=== PATIENT | male | born 1955 | race Caucasian/White ===

== ENCOUNTER 2016-12-13 11:13 | Inpatient (IN) | payer MEDICARE, MEDICAID ==
--- NOTE | 2016-12-13 12:06 | RAD ---
THREE VIEWS RIGHT FOOT: Comparison: 12-07-16 History: Right fifth toe gangrene with foul odor. FINDINGS: Three views of the right foot shows moderate diffuse soft tissue swelling. There is absence of the d istal aspect of the small toe. There is bony loss to the proximal aspect of the proximal phalanx. Th is appears to have progressed compared to the prior examination. IMPRESSION: Progression of osteomyelitis of the small toe. POS: [facility]
[2016-12-13 12:53] LABS: #Basophils 0.1 thou/uL (0.0-0.2); #Eosinphils 0.5 thou/uL (0.0-0.7); #Lymphocytes 2.7 thou/uL (1.20-3.40); #Monocytes 0.7 thou/uL (0.11-0.59); #Neutrophils 5.8 thou/uL (1.40-6.50); %Basophils 0.5 % (0.0-1.0); %Eosinophils 4.8 % (0.0-10.0); %Monocytes 7.2 % (0.0-10.0); Hematocrit 38.1 % (42.0-52.0); Mean Platelet Volume 8.2 fL (7.4-10.4); Red Blood Cell (RBC) Count 4.02 mill/uL (4.70-6.10); White Blood Cell (WBC) Count 9.7 thou/uL (4.8-10.8)
[2016-12-13] MEDS ORDERED: ADMIXTURE FEE IVPB SCH (13:15)
[2016-12-13] MEDS ORDERED: SODIUM CHLORIDE IVPB SCH (13:15)
[2016-12-13] MEDS ORDERED: VANCOMYCIN HCL IVPB SCH (13:15)
[2016-12-13 13:17] LABS: ALT (SGPT) Less than 7 U/L (8-55); AST (SGOT) 8 U/L (5-34); Alkaline Phosphatase 136 U/L (40-150); Anion Gap 14 mmol/L (10-20); BUN (Urea Nitrogen) 26 mg/dL (8.4-25.7); Bilirubin, Total 0.3 mg/dL (0.2-1.2); Calc. Creatinine Clearance 0 mL/min (70-130); Calcium 8.9 mg/dL (7.8-10.44); Carbon Dioxide 26 mmol/L (23-31); Chloride 102 mmol/L (98-107); Estimated GFR-MDRD 29; Globulin 3.5 g/dL (2.4-3.5)
[2016-12-13 13:53] LABS: PTT 25.9 SEC (22.9-36.1); Prothrombin Time 13.4 SEC (12.0-14.7)
--- NOTE | 2016-12-13 14:00 | RAD ---
SINGLE VIEW OF THE CHEST: HISTORY: COPD with hypertension and diabetes. COMPARISON: 06/24/2016 FINDINGS: Single view of the chest show normal sized cardiomediastinal silhouette. There is no evidence of con solidation, mass, or pleural effusion. The bones are unremarkable. IMPRESSION: No evidence of acute cardiopulmonary disease. POS: [facility]
[2016-12-13] MEDS ORDERED: Clindamycin/D5W 900 mg/50 ml Premix Bag ONE (14:59)
[2016-12-13] MEDS ORDERED: Ondansetron HCl/PF 4 MG/2 ML Vial IVP PRN (15:44)
[2016-12-13] MEDS ORDERED: Mag-Al 1200 mg/1200 mg/30 ML UDCUP PO PRN (15:44)
[2016-12-13] MEDS ORDERED: Milk Of Magnesia 30 ML UDCUP PO PRN (15:44)
[2016-12-13] MEDS ORDERED: VANCOMYCIN IVPB PRN (15:44)
[2016-12-13] MEDS ORDERED: Eucerin (Mineral Oil/Petrolatum,White) 30 gm Jar TOP PRN (15:44)
[2016-12-13] MEDS ORDERED: Sodium Chloride 0.65% Nasal 44 ML BOT EA NARE PRN (15:44)
[2016-12-13] MEDS ORDERED: Senokot 8.6 MG TAB PO PRN (15:44)
[2016-12-13] MEDS ORDERED: Ondansetron ODT 4 MG TAB PO PRN (15:44)
[2016-12-13] MEDS ORDERED: Zolpidem Tartrate 5 MG TAB PO PRN (15:44)
[2016-12-13] MEDS ORDERED: Loratadine 10 MG TAB PO PRN (15:44)
[2016-12-13] MEDS ORDERED: Diabetic Tussin 200 MG/10 ML UDCUP PO PRN (15:44)
[2016-12-13] MEDS ORDERED: Artificial Tears 18 DROP/0.9 ML EA EYE PRN (15:44)
[2016-12-13] MEDS ORDERED: Chloraseptic Spray 180 ml Bottle PO PRN (15:44)
[2016-12-13] MEDS ORDERED: Loperamide HCl 2 MG CAP PO PRN (15:44)
[2016-12-13] MEDS ORDERED: Acetaminophen 325 MG TAB PO PRN (15:44)
[2016-12-13] MEDS ORDERED: Morphine Sulfate 2 MG/ML SYRINGE SLOW IVP PRN (15:44)
--- NOTE | 2016-12-13 15:44 | HP ---
PRIMARY CARE PHYSICIAN: Nolberto Rollins M.D. REASON FOR ADMISSION: Osteomyelitis of right fifth toe. HISTORY OF PRESENT ILLNESS: A 61-year-old male who has diabetes type 2 on oral diabetic medications and diabetic neuropathy, who came to emergency room for evaluation of black discoloration of the ri ght fifth toe. The patient also noticed erythema and swelling proximally on the right foot. He laird s feel little pain. He was feeling subjectively warm at home, but he is not sure about fever. The patient reports that he is dealing with this type of infection in his right fifth toe for about 3 mo nths, but it is not getting better. He was given a trial of a different antibiotic therapy. Zeferino grande is frustrated; and now, he decided to come to emergency room for surgical treatment. In the emerg ency room, x-ray showed progression of osteomyelitis of the small toe. The patient also has a right foot erythema and swelling. This patient denies any vascular claudication. He denies any nausea, vomiting, diarrhea or constipation. He denies any chest pain, though he reports that his rib cage i s broken and that is why he hurts sometimes on deep pressure on the chest wall. Currently, his symp stephanie is getting worse with walking because of pain in his right foot. He denies any UTI symptoms. He denies any hematochezia or melena. REVIEW OF SYSTEMS: Please see my HPI for pertinent positives and negatives. All other review of sy stems reviewed and negative except as mentioned in the HPI. Constitutional: Weight loss or gain, ability to conduct usual activities. Skin: Rash, itching. Eyes: Double vision, pain. ENT/Mouth: Nose bleeding, neck stiffness, pain, tenderness. Cardiovascular: Palpitations, dyspnea on exertion, orthopnea. Respiratory: Shortness of breath, wheezing, cough, hemoptysis, fever or night sweats. Gastrointestinal: Poor appetite, abdominal pain, heartburn, nausea, vomiting, constipation, or diar sanjiv. Genitourinary: Urgency, frequency, dysuria, nocturia. Musculoskeletal: Pain, swelling. Neurologic/Psychiatric: Anxiety, depression. Allergy/Immunologic: Skin rash, bleeding tendency. PAST MEDICAL HISTORY: Diabetes type 2, COPD, tobacco abuse disorder, chronic kidney disease stage 4 , and diabetic neuropathy. PAST SURGICAL HISTORY: Right hand surgery, hernia repair, venous surgery. PAST PSYCHIATRIC HISTORY: Anxiety, depression, bipolar disorder, and schizophrenia. ALLERGIES: The patient is allergic to PENICILLIN, TOMATOES and INSULIN. FAMILY HISTORY: Breast cancer to his mother, coronary artery disease to his father. SOCIAL HISTORY: Patient is . He says he has only one child. He smokes cigars. He denies any alcohol abuse. He denies any other illicit drug abuse. CODE STATUS: The patient prefers do not resuscitate in case of cardiopulmonary arrest, patient's si ster-in-law, Liana Hernandez, his surrogate decision maker. EMERGENCY ROOM COURSE: Patient has received vancomycin, clindamycin, and IV fluid. CURRENT HOME MEDICATIONS: Metformin 1000 mg twice daily, gabapentin 300 mg 3 times daily, glimepiri de 4 mg p.o. b.i.d., Lipitor 40 mg p.o. at bedtime, ferrous sulfate 325 mg p.o. daily, lisinopril 40 mg p.o. b.i.d. PHYSICAL EXAMINATION: VITAL SIGNS: On arrival, blood pressure 117/69, pulse 89, respiratory rate 18, temperature 97.7, an d saturation 93% on room air, weight 90.7 kilograms. GENERAL: Patient is currently alert, awake, in no obvious acute distress. HEAD: Normocephalic, atraumatic. EYES: Pupils round, reactive to light. Extraocular muscles intact. ENT: Oropharynx within normal limits. Moist mucous membranes. No oral lesions. No pharyngeal josiah thema. No exudates. NECK: Supple. Range of motion is normal. No meningeal signs of irritation. LUNGS: Clear to auscultation without any rhonchi or rales. CARDIAC: S1, S2 regular without any significant murmur. ABDOMEN: Soft, bowel sounds present, nontender, nondistended. No organomegaly. No mass. No supra pubic tenderness. BACK EXAMINATION: Unremarkable. No CVA tenderness. EXTREMITIES: Upper extremity passive movement of all joints are normal. Lower extremity, patient d oes have cellulitis of right foot and fifth toe is black and gangrenous, very feeble pulsation on th e right side. NEUROLOGIC: Nonfocal examination. Patient is moving all 4 limbs. No focal neurological deficit. SKIN: No skin rash other than cellulitis of right foot. PSYCHIATRIC: Normal affect. SIGNIFICANT LABS AND IMAGINGS: Chest x-ray based on my review, no acute cardiopulmonary process. CBC: WBC 9.7, hemoglobin 12.0, platelet 258,000. ESR 53. INR 1.0. BMP: Sodium 137, potassium 5. 3, chloride 102, carbon dioxide 26, anion gap 14, BUN 26, creatinine 2.29, glucose 284, calcium 8.9. LFTs: AST 8, ALT less than 7, alkaline phosphatase 136, albumin 3.5. BNP 27.4, CK 28, CRP 1.25. X-ray foot showing progression of osteomyelitis of the small toe. Right foot show moderate diffuse soft tissue swelling, absence of distal aspect of small toe, bony loss to proximal aspect of proxima l phalanx. Old records reviewed in our hospital system. ASSESSMENT AND PLAN: 1. Right foot cellulitis with diabetic toe infection and osteomyelitis. At this point, the patient will require admission. He will be given broad-spectrum antibiotic therapy with vancomycin and Zos yn. This patient only prefers Dr. Nestor Galeana, music director, to do any kind of intervention and he pr efers seem to be consulted. We will consult Dr. Nestor Galeana, music director, based on patient's request . We will defer further treatment plan to Dr. Nestor Galeana. The patient only makes stress to him. Wound Care team will be consulted. We will control his pain while in hospital with the oral pain me dication. 2. Diabetes type 2, not well controlled. We will continue with diabetes with oral diabetic medicat ion. Patient claims that he is allergic to all kinds of INSULIN and he does not want insulin therap y. We will provide diabetic diet. 3. Hyperkalemia. We will avoid potassium supplementation. We will avoid JASVIR inhibitor. We will r epeat BMP tomorrow. 4. Chronic kidney disease stage 3. We will monitor renal function. We will avoid nephrotoxin agen t. 5. Tobacco abuse disorder. The patient is given counseling to avoid smoking cigars because of his heavy smoking history. We will also do arterial Doppler study on right lower extremity to rule out any peripheral vascular disease given his gangrenous toe. 6. Hypertension. We will continue with amlodipine 10 mg p.o. daily. Because of hyperkalemia and r enal insufficiency, we will avoid JASVIR inhibitors. 7. Bipolar disorder, schizophrenia. The patient is not on any specific medication for this problem . 8. Deep venous thrombosis prophylaxis, heparin 5000 units subcu twice daily. 9. Gastrointestinal prophylaxis. Protonix 40 mg p.o. daily. CODE STATUS: The patient wants to be a DNR and patient's [id number] Liana is a surrogate decisio n maker.
[2016-12-13 15:49] VITALS: BMI 25.0
[2016-12-13] MEDS ORDERED: Gabapentin 100 MG CAP PO SCH (17:00)
[2016-12-13] MEDS: Sodium Chloride 0.9% 1,000 ML IV SCH (17:19)
[2016-12-13] MEDS: Levofloxacin/D5W 250 MG in Premix Bag 1 BAG IVPB SCH (17:44)
--- NOTE | 2016-12-13 18:26 | ULT ---
RIGHT LOWER EXTREMITY ARTERIAL DUPLEX SONOGRAM: Date: 12/13/16 HISTORY: Diabetic foot ulcer. Vascular disease. FINDINGS: Monophasic flow is demonstrated within the common femoral, femoral, and deep femoral, popliteal, pos terior tibial, and dorsalis pedis arteries. No flow is seen within the anterior tibial artery. No ab normally elevated peak systolic velocities are apparent. IMPRESSION: Dampened pulsatility of arterial waveforms in the right lung suggest a more proximal arterial stenos is. Conventional or CT arteriogram could be used for further evaluation if needed. POS: [facility]
[2016-12-13 22:23] LABS: Bilirubin Negative (Negative); Blood, Urine Negative (Negative); Glucose, Urine (Dipstick) Negative (Negative); Ketone, Urine Negative (Negative); Nitrite Negative (Negative); Protein, Urine (Dipstick) 100 mg/dL (Neg-Trace); Urobilinogen 0.2 mg/dL (0.2-1.0)
[2016-12-13 22:24] LABS: Bacteria/HPF None Seen HPF (None Seen); Hyaline Casts/LPF 0-3 HYALINE CAST LPF (0-3 Hyaline); RBC/HPF 0-3 HPF (0-3); Squamous Epithelial None Seen HPF (0-3); WBC/HPF None Seen HPF (0-3)
[2016-12-13] MEDS: Gabapentin 100 MG CAP PO SCH (23:29)
[2016-12-13] MEDS: cloNIDine HCl 0.1 MG TAB PO SCH (23:29)
[2016-12-13] MEDS: Clindamycin/D5W 600 MG in Premix Bag 1 BAG IVPB SCH (23:30)
[2016-12-13] MEDS: Heparin 5,000 UNITS/ML VIAL SC SCH (23:31)
[2016-12-13] MEDS: Atorvastatin Calcium 40 MG TAB PO SCH (23:32)
--- NOTE | 2016-12-14 02:30 | CON ---
DATE OF CONSULTATION: 12/13/2016 SUBJECTIVE FINDINGS: I was called late this afternoon to see the patient known to the office, Jori Martell. He is resting in the bed and is in no acute distress. He has been started on antibiotics a s reviewed. He states he has had a problem with this foot for over 2 months. He was admitted to [facility] late morning or early afternoon due to a foot wound. He was also diagnosed with osteomy elitis as well as renal insufficiency. OBJECTIVE FINDINGS: The patient examined, has palpable pulse weakly, dorsalis pedis 1/4. PT, nonpa lpable. With audible Doppler, he has a strong monophasic posterior tibial pulse and at the dorsalis pedis, he has a slightly weaker monophasic pulses. Capillary filling time to the digits are less t guerra 3 seconds. The foot is warm and has swelling. Examination shows dry and wet gangrene present. The patient has what appears to be the phalanx desiccated and black at the center of the toe where the soft tissues has retracted symmetrically around the remainder of the bone. There is no active d rainage or bleeding. There is pain with attempted touch at the desiccated tissues. ASSESSMENT AND PLAN: 1. The patient and I discussed his current condition. I discussed with him the need for surgical d ebridement, cleaning, and removal of necrotic tissues. We discussed possible closing the wound and more probably having to do wound care and close the wound that will remain open. 2. The patient has been made n.p.o. He will be consented for incision and drainage and amputation of partial right first ray. 3. Surgical intervention is scheduled for 12/14/2016, at noon. 4. At this time, he will continue with antibiotics currently prescribed and deep cultures will be harjinder henry intraoperatively.
[2016-12-14] MEDS: Clindamycin/D5W 600 MG in Premix Bag 1 BAG IVPB SCH ×4 (03:42→20:45)
[2016-12-14 04:46] LABS: #Basophils 0.1 thou/uL (0.0-0.2); #Eosinphils 0.4 thou/uL (0.0-0.7); #Lymphocytes 2.7 thou/uL (1.20-3.40); #Monocytes 0.6 thou/uL (0.11-0.59); #Neutrophils 3.4 thou/uL (1.40-6.50); %Basophils 0.8 % (0.0-1.0); %Eosinophils 6.1 % (0.0-10.0); %Lymphocytes 37.6 % (21.0-51.0); %Monocytes 8.2 % (0.0-10.0); Hematocrit 34.6 % (42.0-52.0); Mean Platelet Volume 8.6 fL (7.4-10.4); Red Blood Cell (RBC) Count 3.61 mill/uL (4.70-6.10); White Blood Cell (WBC) Count 7.1 thou/uL (4.8-10.8)
[2016-12-14 05:08] LABS: ALT (SGPT) Less than 7 U/L (8-55); AST (SGOT) 9 U/L (5-34); Alkaline Phosphatase 124 U/L (40-150); Anion Gap 13 mmol/L (10-20); BUN (Urea Nitrogen) 22 mg/dL (8.4-25.7); Bilirubin, Total 0.2 mg/dL (0.2-1.2); Calc. Creatinine Clearance 59 mL/min (70-130); Calcium 8.8 mg/dL (7.8-10.44); Carbon Dioxide 25 mmol/L (23-31); Chloride 106 mmol/L (98-107); Estimated GFR-MDRD 41; Globulin 3.1 g/dL (2.4-3.5); Protein, Total 6.3 g/dL (5.8-8.1)
[2016-12-14] MEDS: Sodium Chloride 0.9% 1,000 ML IV SCH ×2 (06:29→09:59)
[2016-12-14] MEDS ORDERED: Glimepiride 4 MG TAB PO SCH (08:00)
[2016-12-14] MEDS: Gabapentin 100 MG CAP PO SCH ×3 (09:17→23:16)
[2016-12-14] MEDS: Saccharomyces boulardii 250 MG CAP PO SCH (09:18)
[2016-12-14] MEDS: Heparin 5,000 UNITS/ML VIAL SC SCH ×2 (09:22→23:16)
[2016-12-14] MEDS ORDERED: Bupivacaine PF 0.5% 30 ML VIAL ONE (10:54)
[2016-12-14] MEDS ORDERED: Albuterol Sulfate 1.25 MG/3 ML NEB ONE (11:25)
[2016-12-14] MEDS ORDERED: Midazolam HCl 2 mg/2 ml Vial ONE (11:33)
[2016-12-14] MEDS ORDERED: Fentanyl 100 MCG/2 ML VIAL ONE (11:33)
[2016-12-14] MEDS ORDERED: Neomycin-Polymyxin 1 ML AMP ONE (11:48)
[2016-12-14] MEDS ORDERED: Lidocaine 1% PF 5 ML VIAL ONE (12:06)
[2016-12-14] MEDS ORDERED: Ondansetron HCl/PF 4 MG/2 ML Vial ONE (12:06)
[2016-12-14] MEDS ORDERED: Propofol 200 MG/20 ML VIAL ONE (12:06)
[2016-12-14] MEDS ORDERED: Promethazine HCl 25 MG/ML VIAL IM PRN (13:04)
[2016-12-14] MEDS ORDERED: Ondansetron HCl/PF 4 MG/2 ML Vial IVP PRN (13:04)
[2016-12-14] MEDS ORDERED: Promethazine HCl 25 MG/ML VIAL SLOW IVP PRN (13:04)
[2016-12-14] MEDS ORDERED: Vancomycin HCl 1.25 GM in Sodium Chloride 0.9% 250 ML 250 ML IVPB SCH (14:00)
--- NOTE | 2016-12-14 14:58 | RAD ---
RIGHT FOOT THREE VIEWS: History: Patient is status post I\T\D, status post fifth toe amputation. Comparison: 12-13-16 FINDINGS: Patient has had an amputation to include the distal aspect of the fifth metatarsal and little toe. T here is some slight lucency near the amputation site. This could just be on the basis of amputation. It is difficult to exclude the possibility that this is early osteomyelitis. The bones are slightly demineralized. No additional findings. IMPRESSION: Post-operative changes of the foot with amputation of the little toe and the distal portion of the f ifth metatarsal. I am not certain if the slight lucency at the amputation site is related to the wesley pilo or early osteomyelitis on this basis of this exam. POS: [facility]
--- NOTE | 2016-12-14 15:16 | PDOC.PN ---
- Subjective Encounter Start Date: 12/14/16 Encounter Start Time: 09:00 Subjective: no pain or sob -: is sleeping - Objective Resuscitation Status: Resuscitation Status DNR:Do Not Resuscitate MAR Reviewed: Yes Vital Signs & Weight: Vital Signs (12 hours) Temp Pulse Resp BP BP BP Pulse Ox 12/14/16 09:17 62 157/76 H 12/14/16 08:12 97.7 F 62 16 157/76 H 94 L 12/14/16 08:00 97.7 F 62 16 94 L 12/14/16 04:45 98.0 F 60 18 125/65 94 L Result Diagrams: 12/14/16 04:09 12/14/16 04:09 Additional Labs: Accuchecks 12/14/16 12/13/16 11:45 17:24 POC Glucose 138 H 189 H Phys Exam - Physical Examination HEENT: PERRLA, moist MMs Neck: no JVD, supple Respiratory: no wheezing, no rales Cardiovascular: RRR, no significant murmur Gastrointestinal: soft, non-tender, positive bowel sounds right foot ulcer with gangrene Neurological: non-focal, moves all 4 limbs Dx/Plan (1) COPD (chronic obstructive pulmonary disease) Status: Chronic Qualifiers: COPD type: chronic bronchitis (2) MARY ELLEN (acute kidney injury) Code(s): N17.9 - ACUTE KIDNEY FAILURE, UNSPECIFIED Status: Acute Comment: resolving (3) DM type 2 (diabetes mellitus, type 2) Status: Chronic Qualifiers: Diabetes mellitus complication status: with circulatory complication Diabetes mellitus complication detail: with peripheral angiopathy with gangrene Diabetes mellitus dedicated intermodal truck driver insulin use: without chcf use Qualified Code(s): E11.52 - Type 2 diabetes mellitus with diabetic peripheral angiopathy with gangrene (4) Hypertension Code(s): I10 - ESSENTIAL (PRIMARY) HYPERTENSION Status: Chronic Qualifiers: Hypertension type: essential hypertension (5) Peripheral vascular disease Code(s): I73.9 - PERIPHERAL VASCULAR DISEASE, UNSPECIFIED Status: Chronic Comment: right LE (6) Schizophrenia Code(s): F20.9 - SCHIZOPHRENIA, UNSPECIFIED Status: Chronic Qualifiers: Schizophrenia type: unspecified Qualified Code(s): F20.9 - Schizophrenia, unspecified (7) Tobacco abuse Code(s): Z72.0 - TOBACCO USE Status: Chronic - Plan has pvd in right LE -: for amputation of right 5th toe today -: will consult for possible intervention if pt allows him to do -: gentle iv hydration, renal function trending towards baseline -: on clinda and levaquin for now * . Review of Systems - Medications/Allergies Allergies/Adverse Reactions: Allergies Allergy/AdvReac Type Severity Reaction Status Date / Time tomato Allergy Intermediate Rash Verified 02/22/14 05:16 Penicillins Allergy Verified 02/22/14 05:16 Insulins AdvReac Intermediate Nausea Verified 02/22/14 05:16 Medications: Current Medications Acetaminophen (Tylenol) 650 mg PO Q4H PRN PRN Reason: Headache/Fever or Pain Hydrocodone Bitart/Acetaminophen ([place] 10/325) 1 tab PO Q4H PRN PRN Reason: Moderate Pain (4-6) Al Hydroxide/Mg Hydroxide (Maalox) 30 ml PO Q6H PRN PRN Reason: Heartburn or Indigestion Amlodipine Besylate (Norvasc) 10 mg PO DAILY [facility] Last Admin: 12/14/16 09:17 Dose: 10 mg Artificial Tears (Tears Naturale) 0 drop EA EYE PRN PRN PRN Reason: Dry Eyes Aspirin (Aspirin Chewable) 81 mg PO DAILY [facility] Last Admin: 12/14/16 09:21 Dose: Not Given Atorvastatin Calcium (Lipitor) 40 mg PO HS [facility] Last Admin: 12/13/16 23:32 Dose: Not Given Clonidine HCl (Catapres) 0.1 mg PO HS [facility] Last Admin: 12/13/16 23:29 Dose: 0.1 mg Fentanyl (Pacu-Sublimaze) 50 mcg SLOW IVP Q10MIN PRN PRN Reason: Moderate to Severe Pain (6-10) Stop: 12/14/16 16:04 Gabapentin (Neurontin) 100 mg PO TID [facility] Last Admin: 12/14/16 09:17 Dose: 100 mg Glimepiride (Amaryl) 4 mg PO QAM-WM [facility] Last Admin: 12/14/16 09:21 Dose: Not Given Guaifenesin (Robitussin Sf) 200 mg PO Q4H PRN PRN Reason: Cough Heparin Sodium (Porcine) (Heparin) 5,000 units SC BID [facility] Last Admin: 12/14/16 09:22 Dose: Not Given Hydralazine HCl (Apresoline) 10 mg SLOW IVP Q4H PRN PRN Reason: Systolic BP > 180 Clindamycin Phosphate/Dextrose (600 mg/ Device) 50 mls @ 100 mls/hr IVPB Q6H [facility] Last Admin: 12/14/16 09:58 Dose: 50 mls Levofloxacin 250 mg/ Device 50 mls @ 100 mls/hr IVPB Q24HR [facility] Last Admin: 12/13/16 17:44 Dose: 50 mls Sodium Chloride (Normal Saline 0.9%) 1,000 mls @ 70 mls/hr IV .[id number] [facility] Last Admin: 12/14/16 09:59 Dose: 1,000 mls Vancomycin HCl 1.25 gm/ Sodium (Chloride) 250 mls @ 166.667 mls/hr IVPB 1400 [facility] Last Admin: 12/14/16 14:39 Dose: 250 mls Loperamide HCl (Imodium) 2 mg PO PRN PRN PRN Reason: Diarrhea/Loose Stools Loratadine (Claritin) 10 mg PO DAILYPRN PRN PRN Reason: Sinus Symptoms Magnesium Hydroxide (Milk Of Magnesium) 30 ml PO DAILYPRN PRN PRN Reason: Constipation Mineral Oil/White Petrolatum (Eucerin Cream) 0 gm TOP BIDPRN PRN PRN Reason: Dry Skin Miscellaneous Medication (Pharmacy To Dose) 1 each IVPB PRN PRN PRN Reason: Pharmacy to dose Morphine Sulfate (Morphine Sulfate) 2 mg SLOW IVP Q4H PRN PRN Reason: Severe Pain (7-10) Ondansetron HCl (Zofran Odt) 4 mg PO Q6H PRN PRN Reason: Nausea/Vomiting Ondansetron HCl (Zofran) 4 mg IVP Q6H PRN PRN Reason: Nausea/Vomiting Ondansetron HCl (Pacu-Zofran) 4 mg IVP ONE PRN PRN Reason: Nausea/Vomiting Stop: 12/14/16 16:04 Pantoprazole Sodium (Protonix) 40 mg PO DAILY [facility] Last Admin: 12/14/16 09:17 Dose: 40 mg Phenol (Chloraseptic [place] 180 Ml Bot) 0 ml PO PRN PRN PRN Reason: Sore Throat Promethazine HCl (Pacu-Phenergan) 6.25 mg SLOW IVP ONE PRN PRN Reason: Nausea/Vomiting Stop: 12/14/16 16:04 Promethazine HCl (Pacu-Phenergan) 6.25 mg IM ONE PRN PRN Reason: Nausea/Vomiting Stop: 12/14/16 16:04 Saccharomyces Boulardii (Florastor) 250 mg PO DAILY [facility] Last Admin: 12/14/16 09:18 Dose: 250 mg Senna (Senokot) 2 tab PO HSPRN PRN PRN Reason: Constipation Sodium Chloride ([place] Nasal [place] 0.65%) 0 ml EA NARE QIDPRN PRN PRN Reason: Nasal Congestion Zolpidem Tartrate (Ambien) 5 mg PO HSPRN PRN PRN Reason: Insomnia
[2016-12-14] MEDS: Levofloxacin/D5W 250 MG in Premix Bag 1 BAG IVPB SCH (18:04)
[2016-12-14] MEDS: HYDROcodone/Acetaminophen 10/325 mg Tablet PO PRN (20:43)
[2016-12-14] MEDS: Atorvastatin Calcium 40 MG TAB PO SCH (21:51)
--- NOTE | 2016-12-14 23:06 | OP ---
PREOPERATIVE DIAGNOSIS: Chronic wound with osteomyelitis, right fifth digit. POSTOPERATIVE DIAGNOSIS: Chronic wound with osteomyelitis, right fifth digit. PROCEDURE: Partial right fifth ray amputation. ANESTHESIA: General anesthesia with local. HEMOSTASIS: None used. ESTIMATED BLOOD LOSS: Less than 30 mL SURGEON: Nestor Galeana D.P.M. AIRBRUSH ARTIST TECHNICAL: No assistants. PROCEDURE IN DETAIL: The patient was taken to the operating room, placed on the operating room tabl e, placed in the supine position and general anesthesia was administered. At this time, a mini Serrano block was performed using 0.5% plain Marcaine, totaling 9 mL. At this time, it was noted that magg ots presented deep in the wound on the plantar aspect of the ____ flexor tendon that was present. N ext, the right lower extremity was scrubbed and draped in the usual surgical manner. Attention was first directed to the desiccated tissues. This was clamped and retracted distally and healthy tendi nous tissue was noted and transected. At this time, a curet was performed to remove all the soft ti ssue and multiple maggots that were present. Next, the wound was then reprepped with Hibiclens. A dorsal lateral linear incision was made over the 5th metatarsal extending to the base of the wound dorsally. At this time, using a Biddle, soft tissues were reflected from the metatarsal and incisio n in metatarsal was performed with a power saw. The incision to the bone was a bias, more plantar r emoved than dorsal, more lateral removed than medial. Next, the distal aspect of the skin, which blackburn d some necrosis, was ellipsed with the remaining proximal phalanx and distal fifth metatarsal. Next , using a rongeur and sharp dissection, all nonviable appearing tissues was removed. The flexor and extensor tendons were identified, clamped, and retracted distally and sharply, transected proximall y. With a rongeur, the distal aspect of the fifth metatarsal was again further remodeled. The bone that had appearance of osteomyelitis was passed off the back table and sent off for culture and sensitivity, and Gram stain. Copious lavage of the surgical site was performed. The skin borders were loosely approximated with nylon suture and the distal aspect of the wound was packed with Xeroform. Dressings were applied co nsisting of 4 x 4 gauze, Ovidio, and an Jalil bandage. The patient tolerated the anesthesia and procedure well. Good blood flow to the tissues noted after resection of the tissues. The patient left the operating room with vital signs stable. The patient will be readmitted to the hospital for IV antibiotics and await culture and sensitivity reports. The patient will be seen by Infectious Disease, physical therapy and a wound VAC will be p laced tomorrow afternoon. Social Service will see the patient for decision on home health or SNF po stdischarge placement.
[2016-12-14] MEDS: cloNIDine HCl 0.1 MG TAB PO SCH (23:16)
--- NOTE | 2016-12-15 01:58 | CON ---
DATE OF CONSULTATION: 12/14/2016 HISTORY OF PRESENT ILLNESS: This is a 61-year-old gentleman who presented with some black toe on his right foot. He states the water pollution specialist in [place] did some sort of treatment cause the problem. He underwent an amputation today. He has had a vascular ultrasound demonstrating poor flow in the entire right lower extremity. Additional medical problems include known left internal carotid artery stenosis with a remote history of cerebrovascular accident. The patient was hospitalized earlier this year with atrial flutter with rapid ventricular response with an elevation in his cardiac enzymes; however, refused intervention at that time. He has chronic kidney disease stage 4 with a creatinine anywhere from 1.5 to 3. He has type 2 diabetes mellitus, continues to smoke with COPD. PAST SURGICAL HISTORY: Includes bilateral vein strippings, herniorrhaphy, right hand surgery and the toe amputation. According to the records, he has a past psychiatric history of bipolar disorder. MEDICATIONS AT HOME: Included metformin, gabapentin, glimepiride, Lipitor, ferrous sulfate and lisinopril. ALLERGIES: He reports allergies to PENICILLIN, TOMATOES and INSULIN. SOCIAL HISTORY: He says he lives with his [id number] and continues to smoke cigars. PHYSICAL EXAMINATION: I attempted to examine him and he complained about me moving his blankets to examine his legs and refused further examination. I have reviewed a CT scan from several years ago without contrast demonstrating extensive atherosclerotic disease of the iliac system. Based on his vascular ultrasound, I suspect he has occlusion of his right iliac system. In any event , at present he is refusing any examination and has a history of noncompliance and refusing treatment. I anticipate the patient will be unable to heal his toe amputation and ultimately require a higher level of amputation of his right lower extremity. If he changes his mind about evaluation then can consider cta or angiography depending on his renal function. SKIP
[2016-12-15] MEDS: Clindamycin/D5W 600 MG in Premix Bag 1 BAG IVPB SCH ×4 (03:45→21:08)
[2016-12-15 05:30] LABS: #Basophils 0.1 thou/uL (0.0-0.2); #Eosinphils 0.6 thou/uL (0.0-0.7); #Lymphocytes 2.5 thou/uL (1.20-3.40); #Monocytes 0.6 thou/uL (0.11-0.59); #Neutrophils 3.4 thou/uL (1.40-6.50); %Basophils 1.1 % (0.0-1.0); %Eosinophils 7.7 % (0.0-10.0); %Lymphocytes 35.2 % (21.0-51.0); %Monocytes 8.6 % (0.0-10.0); Hematocrit 33.3 % (42.0-52.0); Red Blood Cell (RBC) Count 3.46 mill/uL (4.70-6.10); White Blood Cell (WBC) Count 7.2 thou/uL (4.8-10.8)
[2016-12-15 05:49] LABS: Anion Gap 12 mmol/L (10-20); BUN (Urea Nitrogen) 17 mg/dL (8.4-25.7); Calc. Creatinine Clearance 69 mL/min (70-130); Calcium 8.9 mg/dL (7.8-10.44); Carbon Dioxide 27 mmol/L (23-31); Chloride 106 mmol/L (98-107); Estimated GFR-MDRD 49
[2016-12-15] MEDS: Gabapentin 100 MG CAP PO SCH ×3 (08:43→21:05)
[2016-12-15] MEDS: Saccharomyces boulardii 250 MG CAP PO SCH (08:44)
[2016-12-15] MEDS: Heparin 5,000 UNITS/ML VIAL SC SCH ×3 (08:45→21:13)
[2016-12-15] MEDS: Glimepiride 4 MG TAB PO SCH ×2 (08:50→17:03)
[2016-12-15] MEDS: HYDROcodone/Acetaminophen 10/325 mg Tablet PO PRN (13:10)
[2016-12-15] MEDS: Sodium Chloride 0.9% 1,000 ML IV SCH (13:13)
[2016-12-15 13:22] LABS: Vancomycin, Trough 12.8 ug/mL
[2016-12-15] MEDS: Vancomycin HCl 1.5 GM in Sodium Chloride 0.9% 250 ML 300 ML IVPB SCH (14:02)
--- NOTE | 2016-12-15 15:33 | PDOC.PN ---
- Subjective Encounter Start Date: 12/15/16 Encounter Start Time: 09:00 Subjective: awake, pain is tolerable with current meds - Objective Resuscitation Status: Resuscitation Status DNR:Do Not Resuscitate MAR Reviewed: Yes Vital Signs & Weight: Vital Signs (12 hours) Temp Pulse Resp BP BP Pulse Ox 12/15/16 12:00 98.5 F 74 20 145/73 H 87 L 12/15/16 09:09 98.7 F 67 18 150/69 H 12/15/16 08:43 67 150/69 H 12/15/16 08:00 98.7 F 67 18 150/69 H 92 L 12/15/16 04:49 97.6 F 67 20 101/64 91 L Weight Admit Weight 200 lb 9.92 oz Weight 200 lb 9.93 oz I&O: 12/14/16 12/15/16 12/16/16 06:59 06:59 06:59 Output Total 800 Balance -800 Result Diagrams: 12/15/16 04:09 12/15/16 04:09 Additional Labs: Accuchecks 12/14/16 12/14/16 20:42 16:23 POC Glucose 256 H 136 H Phys Exam - Physical Examination HEENT: PERRLA, moist MMs Neck: no JVD, supple Respiratory: no wheezing, no rales Cardiovascular: RRR, no significant murmur Gastrointestinal: soft, non-tender, positive bowel sounds Musculoskeletal: no edema Neurological: non-focal, moves all 4 limbs Dx/Plan (1) Peripheral vascular disease Code(s): I73.9 - PERIPHERAL VASCULAR DISEASE, UNSPECIFIED Status: Chronic Comment: right LE (2) DM type 2 (diabetes mellitus, type 2) Status: Chronic Qualifiers: Diabetes mellitus complication status: with circulatory complication Diabetes mellitus complication detail: with peripheral angiopathy with gangrene Diabetes mellitus buttermaker insulin use: without buttermaker use Qualified Code(s): E11.52 - Type 2 diabetes mellitus with diabetic peripheral angiopathy with gangrene (3) COPD (chronic obstructive pulmonary disease) Status: Chronic Qualifiers: COPD type: chronic bronchitis (4) MARY ELLEN (acute kidney injury) Code(s): N17.9 - ACUTE KIDNEY FAILURE, UNSPECIFIED Status: Acute Comment: resolving (5) Hypertension Code(s): I10 - ESSENTIAL (PRIMARY) HYPERTENSION Status: Chronic Qualifiers: Hypertension type: essential hypertension (6) Schizophrenia Code(s): F20.9 - SCHIZOPHRENIA, UNSPECIFIED Status: Chronic Qualifiers: Schizophrenia type: unspecified Qualified Code(s): F20.9 - Schizophrenia, unspecified (7) Tobacco abuse Code(s): Z72.0 - TOBACCO USE Status: Chronic - Plan is s/p partial ray amp of right 5th toe -: PT to amb as tolerated -: dc plan in 24-36hrs -: has very poor circulation in LE per CTS but patient refuses any interventio -: on clinda, levaquin and vanc * . Review of Systems - Medications/Allergies Allergies/Adverse Reactions: Allergies Allergy/AdvReac Type Severity Reaction Status Date / Time tomato Allergy Intermediate Rash Verified 02/22/14 05:16 Penicillins Allergy Verified 02/22/14 05:16 Insulins AdvReac Intermediate Nausea Verified 02/22/14 05:16 Medications: Current Medications Acetaminophen (Tylenol) 650 mg PO Q4H PRN PRN Reason: Headache/Fever or Pain Hydrocodone Bitart/Acetaminophen ([place] 10/325) 1 tab PO Q4H PRN PRN Reason: Moderate Pain (4-6) Last Admin: 12/15/16 13:10 Dose: 1 tab Al Hydroxide/Mg Hydroxide (Maalox) 30 ml PO Q6H PRN PRN Reason: Heartburn or Indigestion Amlodipine Besylate (Norvasc) 10 mg PO DAILY [facility] Last Admin: 12/15/16 08:43 Dose: 10 mg Artificial Tears (Tears Naturale) 0 drop EA EYE PRN PRN PRN Reason: Dry Eyes Aspirin (Aspirin Chewable) 81 mg PO DAILY [facility] Last Admin: 12/15/16 08:53 Dose: Not Given Atorvastatin Calcium (Lipitor) 40 mg PO HS [facility] Last Admin: 12/14/16 21:51 Dose: Not Given Clonidine HCl (Catapres) 0.1 mg PO HS [facility] Last Admin: 12/14/16 23:16 Dose: 0.1 mg Gabapentin (Neurontin) 100 mg PO TID [facility] Last Admin: 12/15/16 08:43 Dose: 100 mg Glimepiride (Amaryl) 4 mg PO BID-[facility] Last Admin: 12/15/16 08:50 Dose: 4 mg Guaifenesin (Robitussin Sf) 200 mg PO Q4H PRN PRN Reason: Cough Heparin Sodium (Porcine) (Heparin) 5,000 units SC BID [facility] Last Admin: 12/15/16 09:03 Dose: Not Given Hydralazine HCl (Apresoline) 10 mg SLOW IVP Q4H PRN PRN Reason: Systolic BP > 180 Clindamycin Phosphate/Dextrose (600 mg/ Device) 50 mls @ 100 mls/hr IVPB Q6H [facility] Last Admin: 12/15/16 08:44 Dose: 50 mls Levofloxacin 250 mg/ Device 50 mls @ 100 mls/hr IVPB Q24HR [facility] Last Admin: 12/14/16 18:04 Dose: 50 mls Sodium Chloride (Normal Saline 0.9%) 1,000 mls @ 70 mls/hr IV .[id number] [facility] Last Admin: 12/15/16 13:13 Dose: 1,000 mls Vancomycin HCl 1.5 gm/ Sodium (Chloride) 300 mls @ 200 mls/hr IVPB 1400 [facility] Last Admin: 12/15/16 14:02 Dose: 300 mls Loperamide HCl (Imodium) 2 mg PO PRN PRN PRN Reason: Diarrhea/Loose Stools Loratadine (Claritin) 10 mg PO DAILYPRN PRN PRN Reason: Sinus Symptoms Magnesium Hydroxide (Milk Of Magnesium) 30 ml PO DAILYPRN PRN PRN Reason: Constipation Mineral Oil/White Petrolatum (Eucerin Cream) 0 gm TOP BIDPRN PRN PRN Reason: Dry Skin Miscellaneous Medication (Pharmacy To Dose) 1 each IVPB PRN PRN PRN Reason: Pharmacy to dose Morphine Sulfate (Morphine Sulfate) 2 mg SLOW IVP Q4H PRN PRN Reason: Severe Pain (7-10) Ondansetron HCl (Zofran Odt) 4 mg PO Q6H PRN PRN Reason: Nausea/Vomiting Ondansetron HCl (Zofran) 4 mg IVP Q6H PRN PRN Reason: Nausea/Vomiting Pantoprazole Sodium (Protonix) 40 mg PO DAILY [facility] Last Admin: 12/15/16 08:44 Dose: 40 mg Phenol (Chloraseptic [place] 180 Ml Bot) 0 ml PO PRN PRN PRN Reason: Sore Throat Saccharomyces Boulardii (Florastor) 250 mg PO DAILY [facility] Last Admin: 12/15/16 08:44 Dose: 250 mg Senna (Senokot) 2 tab PO HSPRN PRN PRN Reason: Constipation Sodium Chloride ([place] Nasal [place] 0.65%) 0 ml EA NARE QIDPRN PRN PRN Reason: Nasal Congestion Zolpidem Tartrate (Ambien) 5 mg PO HSPRN PRN PRN Reason: Insomnia
[2016-12-15] MEDS: Levofloxacin/D5W 250 MG in Premix Bag 1 BAG IVPB SCH (17:47)
[2016-12-15] MEDS: cloNIDine HCl 0.1 MG TAB PO SCH (21:05)
[2016-12-15] MEDS: Atorvastatin Calcium 40 MG TAB PO SCH (21:05)
[2016-12-16] MEDS: Sodium Chloride 0.9% 1,000 ML IV SCH (00:55)
[2016-12-16] MEDS: Clindamycin/D5W 600 MG in Premix Bag 1 BAG IVPB SCH ×3 (02:27→15:03)
--- NOTE | 2016-12-16 05:54 | CON ---
DATE OF CONSULTATION: 12/15/2016 He is in room 4406. SUBJECTIVE FINDINGS: Postop day #1 from right partial fifth ray amputation. Patient was seen and c omfortable in his bed. He seems to be doing well. He answered questions appropriately. OBJECTIVE FINDINGS: The patient has a VAC in place at this time. ASSESSMENT AND PLAN: 1. I discussed with the nurse, the patient's day. He is reported to have refused to let Dr. Kyle examine him as well as Dr. Duran. He has also denied have a home health, did not want anybody to co me to his house and he stated something to the fact he was not going to come in for outpatient wound care. At this time, the social service will be trying to figure out his disposition. 2. At this time, the patient from the Podiatric standpoint can be discharged to an appropriate faci lity or home with an appropriate plan for antibiotic therapy and wound care. 3. I discussed the possible choices for the patient this evening and told him he can think it over and decide tomorrow morning. 4. Patient will be appointed to follow up in the office in approximately 1 week.
--- NOTE | 2016-12-16 06:30 | CON ---
DATE OF CONSULTATION: REASON FOR CONSULTATION: Right fifth toe osteomyelitis. HISTORY OF PRESENT ILLNESS: A 61-year-old patient who has a history of type 2 diabetes, hypertensio n, schizophrenia, bipolar disorder, admitted on 12/13/2016 with discoloration of the right fifth toe associated with erythema and swelling. Apparently, he had steadily worsening of the situation for the 3 months prior to admission. He had failed oral antimicrobial therapy and then is admitted. In itial findings are blood pressure 117/69, pulse 89, respirations 18, temperature 97.7, O2 sat 93%. Pertinent findings are lungs clear. Heart exam normal. Abdomen soft and he had cellulitis in the r ight foot and gangrenous in the right fifth toe. Pulses were feeble. He underwent surgical amputat ion by Dr. Galeana. Surgical report was reviewed and there was resection of the bone at the level of the distal fifth ray. There was evidence of some necrosis at the skin level. All nonviable appeari ng tissues were removed. Sample was sent for cultures. He currently denies any headaches, visual sy mptoms, sore throat, odynophagia, dysphagia, no abdominal pain, no diarrhea, no genitourinary sympto ms, no dyspnea. PAST MEDICAL HISTORY: Type 2 diabetes, chronic obstructive pulmonary disease, chronic smoking, schi zophrenia, neuropathy. ALLERGIES: PENICILLIN and INSULIN. FAMILY HISTORY: Breast cancer. SOCIAL HISTORY: , smokes cigars. MEDICATIONS: Currently receiving Tylenol, Norvasc, aspirin, Lipitor, clindamycin, levofloxacin, van comycin. PHYSICAL EXAMINAITON: VITAL SIGNS: T-max 99.4, now 98.5, blood pressure 140/70, pulse 74, respirations 20, O2 sat down to 87%. GENERAL: Appears no distress. LUNGS: Clear. HEART: Normal. ABDOMEN: Soft. EXTREMITIES: Pulses are faintly palpable in dorsalis pedis. He moves all extremities equally. NEUROLOGIC: He is awake, oriented. LABORATORY DATA AND IMAGING: White cell count 7.2, hemoglobin 10.3, platelets 212 and creatinine 1. 45. Liver profile normal. Glucose 256, albumin 3.2. Urinalysis was normal. Microbiology, presump tive Proteus mirabilis, pending susceptibilities. There is 1 coagulase negative staph blood culture , which is likely a contaminant. There is a foot x-ray from 12/14/2016 with amputation of the dista l fifth metatarsal. ASSESSMENT: 1. Diabetes type 2 with neuropathy. 2. Peripheral vascular disease. 3. Chronic smoking. 4. Gangrene, right fifth toe, status post ray amputation. DISCUSSION: We will order arterial duplex ultrasound if not done yet to evaluate vascular supply. He is currently on clindamycin and levofloxacin. We will switch him to Rocephin until we have susce ptibility of Proteus and then plan discharge for antimicrobial regimen. Since that has been apparen tly a clear margin of amputation, then should not require protracted antimicrobial therapy following discharge.
[2016-12-16 07:58] VITALS: BP 139/69; TEMP 98.7
[2016-12-16] MEDS: Gabapentin 100 MG CAP PO SCH ×2 (08:22→15:12)
[2016-12-16] MEDS: Heparin 5,000 UNITS/ML VIAL SC SCH (08:22)
[2016-12-16] MEDS: Glimepiride 4 MG TAB PO SCH (08:22)
[2016-12-16] MEDS: Saccharomyces boulardii 250 MG CAP PO SCH (08:22)
--- NOTE | 2016-12-16 14:36 | PDOC.PN ---
- Subjective Encounter Start Date: 12/16/16 Encounter Start Time: 09:00 Subjective: is sitting and eating breakfast -: willing to go to swing bed in [place] where his sister works - Objective Resuscitation Status: Resuscitation Status DNR:Do Not Resuscitate MAR Reviewed: Yes Vital Signs & Weight: Vital Signs (12 hours) Temp Pulse Resp BP BP Pulse Ox 12/16/16 08:22 68 139/69 12/16/16 08:00 98.7 F 68 18 90 L 12/16/16 07:54 98.7 F 68 18 139/69 90 L Weight Admit Weight 200 lb 9.92 oz Weight 200 lb 9.6 oz I&O: 12/15/16 12/16/16 12/17/16 06:59 06:59 06:59 Intake Total 1290 Output Total 800 950 Balance -800 340 Result Diagrams: 12/15/16 04:09 12/15/16 04:09 Phys Exam - Physical Examination HEENT: PERRLA, moist MMs Neck: no JVD, supple Respiratory: no wheezing, no rales Cardiovascular: RRR, no significant murmur Gastrointestinal: soft, non-tender, positive bowel sounds Musculoskeletal: no edema, pulses present Neurological: non-focal, moves all 4 limbs Dx/Plan (1) Peripheral vascular disease Code(s): I73.9 - PERIPHERAL VASCULAR DISEASE, UNSPECIFIED Status: Chronic Comment: right LIDYA (2) DM type 2 (diabetes mellitus, type 2) Status: Chronic Qualifiers: Diabetes mellitus complication status: with circulatory complication Diabetes mellitus complication detail: with peripheral angiopathy with gangrene Diabetes mellitus nursing professor insulin use: without fci use Qualified Code(s): E11.52 - Type 2 diabetes mellitus with diabetic peripheral angiopathy with gangrene (3) COPD (chronic obstructive pulmonary disease) Status: Chronic Qualifiers: COPD type: chronic bronchitis (4) MARY ELLEN (acute kidney injury) Code(s): N17.9 - ACUTE KIDNEY FAILURE, UNSPECIFIED Status: Acute Comment: resolving (5) Hypertension Code(s): I10 - ESSENTIAL (PRIMARY) HYPERTENSION Status: Chronic Qualifiers: Hypertension type: essential hypertension (6) Schizophrenia Code(s): F20.9 - SCHIZOPHRENIA, UNSPECIFIED Status: Chronic Qualifiers: Schizophrenia type: unspecified Qualified Code(s): F20.9 - Schizophrenia, unspecified (7) Tobacco abuse Code(s): Z72.0 - TOBACCO USE Status: Chronic - Plan pt is s/p ray amp of 5th right toe -: may dc to swing on cipro and flagyl if ok with -: hemostable -: has refused intervention for pvd/cad * . Review of Systems - Medications/Allergies Allergies/Adverse Reactions: Allergies Allergy/AdvReac Type Severity Reaction Status Date / Time tomato Allergy Intermediate Rash Verified 02/22/14 05:16 Penicillins Allergy Verified 02/22/14 05:16 Insulins AdvReac Intermediate Nausea Verified 02/22/14 05:16 Medications: Current Medications Acetaminophen (Tylenol) 650 mg PO Q4H PRN PRN Reason: Headache/Fever or Pain Hydrocodone Bitart/Acetaminophen ([place] 10/325) 1 tab PO Q4H PRN PRN Reason: Moderate Pain (4-6) Last Admin: 12/15/16 13:10 Dose: 1 tab Al Hydroxide/Mg Hydroxide (Maalox) 30 ml PO Q6H PRN PRN Reason: Heartburn or Indigestion Amlodipine Besylate (Norvasc) [address] [facility] Last Admin: 12/16/16 08:22 Dose: 10 mg Artificial Tears (Tears Naturale) 0 drop EA EYE PRN PRN PRN Reason: Dry Eyes Aspirin (Aspirin Chewable) [address] [facility] Last Admin: 12/16/16 08:23 Dose: Not Given Atorvastatin Calcium (Lipitor) [address] [facility] Last Admin: 12/15/16 21:05 Dose: 40 mg Clonidine HCl (Catapres) 0.[address] [facility] Last Admin: 12/15/16 21:05 Dose: 0.1 mg Gabapentin (Neurontin) [address] [facility] Last Admin: 12/16/16 08:22 Dose: 100 mg Glimepiride (Amaryl) 4 mg PO BID-[facility] Last Admin: 12/16/16 08:22 Dose: 4 mg Guaifenesin (Robitussin Sf) 200 mg PO Q4H PRN PRN Reason: Cough Heparin Sodium (Porcine) (Heparin) 5,[address] [facility] Last Admin: 12/16/16 08:22 Dose: Not Given Hydralazine HCl (Apresoline) 10 mg SLOW IVP Q4H PRN PRN Reason: Systolic BP > 180 Clindamycin Phosphate/Dextrose (600 mg/ Device) 50 mls @ 100 mls/hr IVPB Q6H [facility] Last Admin: 12/16/16 08:22 Dose: 50 mls Levofloxacin 250 mg/ Device 50 mls @ 100 mls/hr IVPB Q24HR [facility] Last Admin: 12/15/16 17:47 Dose: 50 mls Sodium Chloride (Normal Saline 0.9%) 1,000 mls @ 70 mls/hr IV .[id number] [facility] Last Admin: 12/16/16 00:55 Dose: 1,000 mls Vancomycin HCl 1.5 gm/ Sodium (Chloride) 300 mls @ 200 mls/hr IVPB 1400 [facility] Last Admin: 12/15/16 14:02 Dose: 300 mls Loperamide HCl (Imodium) 2 mg PO PRN PRN PRN Reason: Diarrhea/Loose Stools Loratadine (Claritin) 10 mg PO DAILYPRN PRN PRN Reason: Sinus Symptoms Magnesium Hydroxide (Milk Of Magnesium) 30 ml PO DAILYPRN PRN PRN Reason: Constipation Mineral Oil/White Petrolatum (Eucerin Cream) 0 gm TOP BIDPRN PRN PRN Reason: Dry Skin Miscellaneous Medication (Pharmacy To Dose) 1 each IVPB PRN PRN PRN Reason: Pharmacy to dose Morphine Sulfate (Morphine Sulfate) 2 mg SLOW IVP Q4H PRN PRN Reason: Severe Pain (7-10) Ondansetron HCl (Zofran Odt) 4 mg PO Q6H PRN PRN Reason: Nausea/Vomiting Ondansetron HCl (Zofran) 4 mg IVP Q6H PRN PRN Reason: Nausea/Vomiting Pantoprazole Sodium (Protonix) [address] [facility] Last Admin: 12/16/16 08:22 Dose: 40 mg Phenol (Chloraseptic [place] 180 Ml Bot) 0 ml PO PRN PRN PRN Reason: Sore Throat Saccharomyces Boulardii (Florastor) [address] [facility] Last Admin: 12/16/16 08:22 Dose: 250 mg Senna (Senokot) 2 tab PO HSPRN PRN PRN Reason: Constipation Sodium Chloride ([place] Nasal [place] 0.65%) 0 ml EA NARE QIDPRN PRN PRN Reason: Nasal Congestion Zolpidem Tartrate (Ambien) 5 mg PO HSPRN PRN PRN Reason: Insomnia
[2016-12-16] MEDS: Vancomycin HCl 1.5 GM in Sodium Chloride 0.9% 250 ML 300 ML IVPB SCH (15:02)
--- NOTE | 2016-12-16 20:21 | DIS ---
DATE OF ADMISSION: 12/13/2016 DATE OF DISCHARGE: 12/16/2016 DISCHARGE DISPOSITION: Swing bed in [place]. PRIMARY DISCHARGE DIAGNOSES: Right fifth toe ulceration with gangrene status post ray amputation, severe peripheral vascular disease with patient not wanting any intervention. SECONDARY DISCHARGE DIAGNOSES: Diabetes mellitus type 2, chronic obstructive pulmonary disease, acute kidney injury which has resolved, hypertension, and schizoaffective disorder. PROCEDURES DONE DURING HOSPITALIZATION: The patient has had right foot x-ray done, which showed progression of osteomyelitis of the small toe. Arterial ultrasound done for right lower extremity on 12/13/2016 showed dampened pulses suggestive of proximal arterial stenosis. The patient has had partial right fifth ray amputation done by Dr. Lissett Baez on 12/14/2016. Wound cultures grew Proteus sensitive to all antibiotics, except sulbactam and ampicillin. LABORATORY DATA: H\T\H 10 and 33 and platelet count 212. Discharge BUN and creatinine is 17 and 1.45, admitting BUN and creatinine was 26 and 2.2. CRP 1.25. DISCHARGE MEDICATIONS: Aspirin 81 mg p.o. daily, Lipitor 40 mg p.o. at bedtime , Cipro 500 mg p.o. twice daily for 1 week, Flagyl 500 mg p.o. twice daily for 1 week, clonidine 0.1 mg p.o. at bedtime, Norvasc 10 mg p.o. daily, Motrin p.r.n. for pain, Amaryl 4 mg p.o. twice daily, gabapentin 100 mg p.o. 3 times daily, and atorvastatin 40 mg p.o. at bedtime. ALLERGIES: Allergic to PENICILLIN, INSULIN, and TOMATO. INPATIENT CONSULTS: Dr. Lissett Baez, stone operator; Dr. Kyle for Vascular Surgery ; Dr. Duran for Infectious Disease. DISCHARGE PLAN: The patient to follow up with Dr. Lissett Baez, his stone operator as advised and primary care physician in 1 week. BRIEF COURSE DURING HOSPITALIZATION: The patient initially got admitted for right fifth toe ulceration with gangrene. X-ray done revealed osteomyelitis. As patient wanted his stone operator to intervene, Dr. Lissett Baez was consulted. He has had partial fifth ray amputation of the right foot done. The patient has severe peripheral vascular disease and is not wanting any intervention to be done. He also has coronary artery disease and did not want any intervention to be done for the same on previous hospitalization here. In view of this, the patient is being optimized medically. His wound is in a wound VAC and will be shortly discharged to swing bed in [place]. He needs to continue the antibiotics for 1 week. He is otherwise hemodynamically stable and has been cleared by Dr. Lissett Baez, stone operator for discharge. Please see a [id number] documentation on [facility] for the day of discharge. A total of 35 minutes was spent on discharge plan. SKIP
== END 2016-12-16 15:20 | disposition swing bed (61) | DRG 240 ==
LOC: ERS 11:13 → T4-A 13:53
PROVIDERS: ADMIT Internal Medicine; ATTEND Internal Medicine
PROC: 0Y6M0ZF Detachment at Right Foot, Partial 5th Ray, Open Approach (ICD-10-PCS; principal; 2016-12-14)
DX: E11.52 Type 2 diabetes mellitus with diabetic peripheral angiopathy with gangrene (principal); N17.9 Acute kidney failure, unspecified; E11.22 Type 2 diabetes mellitus with diabetic chronic kidney disease; E11.621 Type 2 diabetes mellitus with foot ulcer; N18.3 Chronic kidney disease, stage 3 (moderate); E87.5 Hyperkalemia; M86.9 Osteomyelitis, unspecified; E11.65 Type 2 diabetes mellitus with hyperglycemia; E11.69 Type 2 diabetes mellitus with other specified complication; Z79.4 Long term (current) use of insulin; J44.9 Chronic obstructive pulmonary disease, unspecified; I12.9 Hypertensive chronic kidney disease with stage 1 through stage 4 chronic kidney disease, or unspecified chronic kidney disease; F20.9 Schizophrenia, unspecified; F41.9 Anxiety disorder, unspecified; F31.9 Bipolar disorder, unspecified; F17.210 Nicotine dependence, cigarettes, uncomplicated; B96.4 Proteus (mirabilis) (morganii) as the cause of diseases classified elsewhere; L97.519 Non-pressure chronic ulcer of other part of right foot with unspecified severity; Z88.0 Allergy status to penicillin; Z86.73 Personal history of transient ischemic attack (TIA), and cerebral infarction without residual deficits; I65.22 Occlusion and stenosis of left carotid artery
CPT/HCPCS: 36415; 36416; 71010; 80048; 80053; 80202; 81001; 82550; 83880; 85025; 85610; 85652; 85730; 86140; 87040; 87070; 87076; 87077; 87102; 87149; 87186; 87205; 87206; 93005; 93923; 96365; 96375; G8978-GP-CM; G8979-GP-CK; J1644; J1956; J2001; J2250; J2270; J2405; J2704; J3010; J3370; J3490; J7050; S0020

== ENCOUNTER 2017-02-27 21:48 | Emergency (ER) | payer MEDICARE, MEDICAID ==
[2017-02-27] MEDS ORDERED: Albuterol Sulfate 2.5 mg/3 ml Neb ONE ×2 (22:16→22:23)
[2017-02-27 22:34] LABS: #Basophils 0.1 thou/uL (0.0-0.2); #Eosinphils 0.5 thou/uL (0.0-0.7); #Lymphocytes 2.6 thou/uL (1.20-3.40); #Monocytes 0.5 thou/uL (0.11-0.59); #Neutrophils 3.3 thou/uL (1.40-6.50); %Basophils 1.1 % (0.0-1.0); %Eosinophils 6.7 % (0.0-10.0); %Lymphocytes 37.9 % (21.0-51.0); %Monocytes 6.9 % (0.0-10.0); Hematocrit 35.2 % (42.0-52.0); Mean Platelet Volume 8.4 fL (7.4-10.4); White Blood Cell (WBC) Count 6.9 thou/uL (4.8-10.8)
--- NOTE | 2017-02-27 22:45 | RAD ---
AP CHEST: History: Chest pain. Date: 02-27-17 Comparison: 12-13-16 FINDINGS: The lungs are well aerated. No evidence of active intrathoracic disease is seen. No evidence of effus ions, pneumonia or pneumothorax seen. IMPRESSION: Unremarkable AP chest. POS: [facility]
[2017-02-27 22:56] LABS: ALT (SGPT) 13 U/L (8-55); AST (SGOT) 16 U/L (5-34); Alkaline Phosphatase 118 U/L (40-150); Anion Gap 14 mmol/L (10-20); BUN (Urea Nitrogen) 27 mg/dL (8.4-25.7); Bilirubin, Total 0.2 mg/dL (0.2-1.2); CK (CPK) 63 U/L (30-200); Calc. Creatinine Clearance 0 mL/min (70-130); Calcium 9.2 mg/dL (7.8-10.44); Carbon Dioxide 28 mmol/L (23-31); Chloride 106 mmol/L (98-107); Estimated GFR-MDRD 38; Globulin 3.2 g/dL (2.4-3.5)
[2017-02-27 23:01] LABS: Troponin I 0.039 ng/mL (< 0.028)
[2017-02-28] MEDS ORDERED: predniSONE 20 MG TAB ONE (00:58)
== END 2017-02-28 01:55 | disposition home or self-care (01) ==
LOC: ERS 21:48
DX: J44.1 Chronic obstructive pulmonary disease with (acute) exacerbation (principal); I10 Essential (primary) hypertension; E11.9 Type 2 diabetes mellitus without complications; F17.210 Nicotine dependence, cigarettes, uncomplicated; F31.9 Bipolar disorder, unspecified; F20.9 Schizophrenia, unspecified
CPT/HCPCS: 36415; 71010; 80053; 82553; 83880; 84484; 85025; 93005; 94640; 99406; J7506; J7611

== ENCOUNTER 2017-03-12 05:54 | Inpatient (IN) | payer MEDICARE, MEDICAID ==
[2017-03-12 06:15] LABS: Oxyhemoglobin 75.9 % (94.0-97.0); Sodium 141 mmol/L (135-148)
[2017-03-12 06:16] LABS: Modified Allen's Test POSITIVE; Vent NO
[2017-03-12 06:41] LABS: #Eosinphils 0.1 thou/uL (0.0-0.7); #Lymphocytes 2.3 thou/uL (1.20-3.40); #Monocytes 0.6 thou/uL (0.11-0.59); #Neutrophils 10.8 thou/uL (1.40-6.50); %Basophils 0.3 % (0.0-1.0); %Eosinophils 0.4 % (0.0-10.0); %Lymphocytes 16.8 % (21.0-51.0); %Monocytes 4.3 % (0.0-10.0); Hematocrit 39.5 % (42.0-52.0); Mean Platelet Volume 8.3 fL (7.4-10.4); Red Blood Cell (RBC) Count 4.14 mill/uL (4.70-6.10); White Blood Cell (WBC) Count 13.8 thou/uL (4.8-10.8)
[2017-03-12] MEDS ORDERED: Lorazepam 2 MG/ML VIAL ONE ×2 (06:45→06:47)
[2017-03-12 06:49] LABS: PTT 25.7 SEC (22.9-36.1); Prothrombin Time 12.3 SEC (12.0-14.7)
[2017-03-12] MEDS ORDERED: Diltiazem HCl 125 MG, Admixture Fee 1 EACH in Sodium Chloride 0.9% 100 ML IVPB SCH (07:00)
[2017-03-12 07:10] LABS: ALT (SGPT) 12 U/L (8-55); AST (SGOT) 17 U/L (5-34); Alkaline Phosphatase 130 U/L (40-150); Anion Gap 15 mmol/L (10-20); BUN (Urea Nitrogen) 25 mg/dL (8.4-25.7); Bilirubin, Total 0.2 mg/dL (0.2-1.2); CK (CPK) 74 U/L (30-200); Calc. Creatinine Clearance 0 mL/min (70-130); Calcium 9.1 mg/dL (7.8-10.44); Carbon Dioxide 29 mmol/L (23-31); Chloride 102 mmol/L (98-107); Estimated GFR-MDRD 49; Globulin 3.4 g/dL (2.4-3.5); Lipase 26 U/L (8-78); Protein, Total 7.2 g/dL (5.8-8.1)
[2017-03-12 07:11] LABS: Lactic Acid - Sepsis 2.2 mmol/L (0.5-2.2)
[2017-03-12 07:13] LABS: Troponin I 0.418 ng/mL (< 0.028)
--- NOTE | 2017-03-12 08:59 | CT ---
CONTRAST ENHANCED CTA CHEST: Date: 03/12/17 HISTORY: 61-year-old male with decreased oxygen saturation, respiratory distress, and shortness of breath. TECHNIQUE: Contrast enhanced CTA of chest performed. 2D and 3D reconstructed images performed on an independent 3D workstation. FINDINGS: Calcifications seen in the aortic arch and coronary arteries. No evidence of filling defects seen in the pulmonary arteries to suggest pulmonary emboli. Diffuse air space opacities seen in both lungs, more pronounced in the left lung than in the right wiley ng. Diffuse air space opacities seen in the left upper lobe and bilateral lower lobes, and to a lesse r degree right upper lobe and right middle lobe. This is concerning for multilobar pneumonia. No definite evidence of mediastinal or hilar lymphadenopathy seen. IMPRESSION: 1. Findings concerning for multilobar pneumonia. 2. Coronary artery calcifications. 3. Aortic arch calcifications. 4. Right subcarinal and hilar lymph node calcifications. 5. Small right minor fissure entrapped fluid. POS: [facility]
[2017-03-12 09:28] VITALS: BMI 26.6
[2017-03-12] MEDS ORDERED: Ondansetron ODT 4 MG TAB PO PRN (09:39)
[2017-03-12] MEDS ORDERED: Acetaminophen 325 MG TAB PO PRN (09:39)
[2017-03-12] MEDS ORDERED: Ondansetron HCl/PF 4 MG/2 ML Vial IVP PRN (09:39)
[2017-03-12] MEDS ORDERED: Albuterol Sulfate 2.5 mg/3 ml Neb NEB PRN (09:39)
[2017-03-12] MEDS ORDERED: Furosemide 20 MG TAB PO PRN (09:49)
[2017-03-12] MEDS ORDERED: Milk Of Magnesia 30 ML UDCUP PO PRN (09:49)
[2017-03-12] MEDS ORDERED: methylPREDNISolone Sod Succ/PF 125 MG/2 ML VIAL IVP SCH (10:00)
[2017-03-12 10:12] LABS: Troponin I 1.533 ng/mL (< 0.028)
[2017-03-12] MEDS ORDERED: Ibuprofen 200 MG TAB PO PRN (10:27)
[2017-03-12] MEDS ORDERED: Enoxaparin Sodium 40 MG/0.4 ML SYRINGE SC SCH (10:30)
[2017-03-12] MEDS ORDERED: Glimepiride 2 MG TAB PO SCH (10:30)
[2017-03-12] MEDS ORDERED: metFORMIN 500 MG TAB PO SCH (10:30)
[2017-03-12] MEDS ORDERED: Lisinopril 20 MG TAB PO SCH (10:30)
[2017-03-12] MEDS ORDERED: Amlodipine 10 MG TAB PO SCH (10:30)
[2017-03-12] MEDS ORDERED: Gabapentin 300 MG CAP PO SCH (10:30)
[2017-03-12] MEDS ORDERED: predniSONE 20 MG TAB PO SCH (10:30)
--- NOTE | 2017-03-12 10:49 | RAD ---
AP VIEW CHEST: Date: 03/12/17 HISTORY: Dyspnea. FINDINGS: Comparison made to previous exam from 02/27/17. AP view of chest demonstrates EKG leads seen over the chest. Pulmonary vascular congestion is seen. P erihilar air space opacities have increased since the previous exam, concerning for possible pulmonar y edema. IMPRESSION: 1. Pulmonary vascular congestion. 2. Subtle perihilar air space opacities concerning for pulmonary edema. POS: [facility]
[2017-03-12] MEDS: Sodium Chloride 0.9% 1,000 ML IV SCH ×2 (11:17→16:54)
[2017-03-12] MEDS: Aspirin 325 MG TAB PO SCH (11:17)
[2017-03-12] MEDS: Nicotine 14 MG PATCH TD SCH (11:17)
[2017-03-12] MEDS ORDERED: ISOVUE-370 76%-LOCM 1 ML ONE (13:46)
--- NOTE | 2017-03-12 13:53 | PRG ---
DATE OF SERVICE: 03/12/2017 TIME: 10:45 a.m. SUBJECTIVE: I presented to the bedside of Mr. Martell at approximately 10:45 a.m. Per nursing, the pa aron was refusing all interventions. He was noted to be hypoxic on Venturi mask and it was recommen ded that he be on BiPAP; however, he was declining that at that time. The patient was extremely angr y and upset that he was admitted to the hospital. Patient's desire was to go back to his nursing [facility] e. The patient is currently admitted for likely sepsis secondary to multilobar pneumonia. However, he is declining any interventions including antibiotics, IV fluids, BiPAP monitoring. Even though th e patient had been placed on Venturi mask, he was removing it. When I presented to the room, patient initially refused to speak to me. However, after some questioning, he did report that his only justina re was that we stop intervening on his behalf and that he be allowed to go back to the [facility]. At that time, I assessed his mental status and his ability to make that decision. He was alert and oriented x3. The patient recalled and repeated back to me the details of what happened last night an d the reason that he was brought to the emergency room. He remembered all details of hospitalization . When I asked if he was aware of his condition, he reported that he was and was able to imply with me that he seemed to be having a heart condition and possibly a lung condition. When I advised that he remain hospitalized for treatment of his conditions, he repeated that he desired to be discharged. I had advised him that we would not be discharging him and then if he wanted to leave the hospital he would have to do that against medical advice. I have explained to the patient that he had a belkys us medical condition ongoing that could result in his imminent if he were to not accept our int erventions and told him to leave the hospital. When I asked if the patient was aware of the conseque nces of his actions, he repeated that he knew that he could "have a heart attack or ." When I ask ed if he was okay with those consequences, he repeated that he was. We then made a phone call to the patient's power of environmental attorney to ensure that he seemed to be able to make that decision, and the power of environmental attorney reported that he was able to make that decision. I then spoke again with the patient to confirm his code status and he reported that he was a DO NOT RESUSCITATE and that he did not desire that a tube be placed on his throat to breathe for him or other chest compressions be performed if hi s heart would stop. Nurses are continuing to document the refusal of any intervention on behalf of t he patient to improve his status or his health. After conversation with the patient and him learning that he would have to sign out against medical advice in order to leave he indicated to me that he i ntended to do so. Once again, he reported his code status is DNR and was able to verbalize to myself and Dr. Deutsch the consequences of his actions if he were to be critically ill, as we currently assum e him to be.
--- NOTE | 2017-03-12 15:48 | HP-2 ---
DATE OF ADMISSION: 03/12/2017 RESIDENT: Alex Deutsch M.D. ATTENDING PHYSICIAN: Sunny Metcalf M.D. PRIMARY CARE PHYSICIAN: Anne Marie Cardoso M.D. CODE STATUS: DNR. CHIEF COMPLAINT: Shortness of breath. HISTORY OF PRESENT ILLNESS: Mr. Martell is a 61-year-old male who presents to the ER from [facility] via EMS. Patient was apparently found on the floor of the [facility] earlier this morning acutely dyspneic. He was found sitting in his own feces and had previ ously been refusing nursing assistance. Patient also refused to take all of his regular medications for the past week, even though he has reportedly been having several day symptoms of congestion and o ther upper respiratory type symptoms. Vitals upon transfer were 78% oxygen saturation on room air, h eart rate 132, respiratory rate 30, blood pressure 148/50, and temperature of 96.9. Patient was give n Solu-Medrol and DuoNebs en route and had a CPAP. In the ER, the patient was found to be in SVT and had synchronous cardioversion performed at 606 with 200 joules after trauma they have been given, wi th subsequent resolution. The patient was also started on BiPAP at 10 and 5 with 50% FIO2. However, by the time patient was transferred to the floor, he had refused BiPAP along with several other medi cations. In the ER, the patient received 10 mg of etomidate, a bolus of diltiazem, DuoNebs, Ativan 1 mg, full strength aspirin, and Levaquin 750 mg. He refused the vancomycin that had been ordered. PAST MEDICAL HISTORY: 1. Noninsulin dependent type 2 diabetes mellitus. 2. Hypertension. 3. Hyperlipidemia. 4. CKD 3. 5. Peripheral neuropathy. 6. Schizophrenia/bipolar. 7. Unspecified dementia (on 01/09/2017, patient was referred to psychiatry for care, evaluation and treatment. PAST SURGICAL HISTORY: 1. Right toe amputation, 11/2016. 2. Hernia repair. 3. Right hand surgery. ALLERGIES: 1. PENICILLIN. 2. INSULIN. 3. TOMATOES. MEDICATIONS: 1. Lisinopril 20 mg daily. 2. Glimepiride 2 mg b.i.d. with meals. 3. Amlodipine 10 mg daily. 4. Atorvastatin 40 mg at bedtime. 5. Aspirin 81 mg daily. 6. Acetaminophen 650 mg p.o. q.2 h. p.r.n. pain. 7. Magnesium hydroxide 30 mL at bedtime p.r.n. 8. Ibuprofen 400 mg t.i.d. p.r.n. 9. Furosemide 20 mg daily p.r.n. 10. Clonidine 0.1 mg at bedtime. 11. Omeprazole 20 mg daily. 12. Metformin 1000 mg b.i.d. 13. Gabapentin 300 mg t.i.d. 14. Donepezil 5 mg at bedtime. FAMILY HISTORY: Unremarkable per patient. SOCIAL HISTORY: Patient drinks socially, continues to smoke one pack per day for the past 55 pack ye ars and denies drug use. His mother lives in [place], but is apparently not very involved in his ca re. Patient's power of ip attorney is his [id number]-[id number], Liana. REVIEW OF SYSTEMS: Ten-point review of systems including general, eyes, ENT, respiratory, CV, GI, , skin, musculoskeletal, and neuro all negative except for those pertinent positives listed in the HP I along with complaint of bilateral ear pain. PHYSICAL EXAMINATION: VITAL SIGNS: Blood pressure 121/62, pulse 88, respiratory rate 28, T-max 99.1, pulse ox 93% on Venti mask of 13 liters per minute. GENERAL: The patient was alert, oriented x4, lying on side, well-developed, well-nourished, was very overly aggressive with staff and myself. HEENT: PERRLA, EOMI. Conjunctivae within normal limits. ENT: TMs, nasal mucosa and oropharynx within normal limits. NECK: Supple, no lymphadenopathy. CARDIOVASCULAR: Regular rhythm. No murmur, no gallops. Radial and pedal pulses 2+ bilaterally. RESPIRATORY: The patient was tachypneic with mild subdiaphragmatic retractions and diffuse expirator y wheezing, prolonged expiration phase with scattered rales. ABDOMEN: Soft, nontender to palpation. Positive bowel sounds x4, no masses or distention. EXTREMITIES: No clubbing, no cyanosis. He had trace pitting edema to the ankles. MUSCULOSKELETAL: Structure and tone within normal limits. He had a right fifth toe amputation with a bandage in place over the site. NEUROLOGIC: No focal deficits. Sensation within normal limits. Cranial nerves II-XII intact. SKIN: Cool to touch in the distal lower extremities. No cyanosis or other lesions. PSYCHIATRIC: The patient was very uncooperative at times. Mildly agitated with an angry affect disp roportionate to the current situation. LABORATORY DATA: CBC: White blood cell 13.8, platelets 229, hemoglobin 12.4, and hematocrit 39.5. CMP: Sodium 141, potassium 5.1, chloride 102, bicarbonate 29, BUN 25, creatinine 1.46, GFR 49, gluco se 223, calcium 7.2, total protein 9.1, albumin 3.8, total bilirubin 0.2, AST 17, ALT 12, alkaline ph osphatase 130, this D-dimer was elevated at 1.34. Coags were within normal limits. CK-MB was 9.1 an d troponin was 0.418; however, these labs were taken after cardioversion. BNP was 351, lactic acid w as 2.2. ABG showed a pH of 7.32, CO2 of 57.3, oxygen 46.5. EKG showed sinus tachycardia at 558, lef t axis deviation and left ventricular hypertrophy and short [place] interval. This presumably then transi tioned to paroxysmal SVT on monitoring. CTA showed coronary artery and aortic arch vascular calcific ations, but no PE, concern for multilobar pneumonia, entrapped fluid in the right minor fissure. ASSESSMENT AND PLAN: This is a 61-year-old male with: 1. Acute hypoxic hypercapnic respiratory failure secondary to #2 and 3. Patient refusing BiPAP and is a DNR, saturations consistently in the upper 80s to low 90s on high flow oxygen device, we will co nsult Pulmonology and treat as below. 2. Sepsis syndrome secondary to multilobar community-acquired pneumonia. Continue broad spectrum an tibiotics with antipseudomonal coverage. Patient has been refusing appropriate antibiotics and fluid s. Although, IV fluids have been ordered, the patient has not received any so far due to persistent refusal. Blood cultures pending. Initial lactic acid upper limit of normal. We will trend. 3. Chronic obstructive pulmonary disease exacerbation secondary to #2, steroids, DuoNebs, will give a dose of IV magnesium. 4. Paroxysmal supraventricular tachycardia, responded to synchronized cardioversion x1. Patient now is in normal sinus rhythm. Diltiazem drip held for now due to stabilization of rhythm, consider Car diology consult if tachyarrhythmia recurs. Continue telemetry monitoring 5. Elevated troponin likely reflective of myocardial injury status post shock. We will trend. Shahrzad ent without complaints of chest pain. 6. Chronic kidney disease 3 and appears to be at baseline. We will monitor for changes after this c ontrast. 7. Chronic normocytic anemia, improved from prior. 8. Type 2 diabetes mellitus. Continue home medications, keep glucose in the goal range of 140 to 18 0 while inpatient. Accu-Cheks a.c. and at bedtime. 9. Hypertension, home medications if blood pressure remains stable. 10. Hyperlipidemia. Continue statin. 11. Schizophrenia/bipolar. Continue home medications. 12. Dementia. Continue Aricept. DISPOSITION AND LENGTH OF HOSPITAL STAY: Admit to IMCU, likely discharge back to alf after more than 2 midnights. Symptomatic medications will be provided. History and physical exam as well as management discussed with Dr. Metcalf. The patient is a DNR, w nba was personally confirmed by myself with the patient as well as confirmed by myself with his monica r of ip attorney.
--- NOTE | 2017-03-12 16:00 | HP ---
DATE OF ADMISSION: 03/12/2017 This is attending history and physical. For full history and physical details, please see Dr. Alex Deutsch' dictated H&P. Portions of the history and physical have been repeated by myself and I am in agreement with assessment and plan as documented. HISTORY OF PRESENT ILLNESS: In brief, this patient is a 61-year-old gentleman with a history of COPD , chronic kidney disease stage 3, type 2 diabetes mellitus, hypertension, hyperlipidemia, bipolar and schizophrenia disease who is presenting after transfer from his residential. Per records, patient was found lying in his feces this morning with oxygen saturations in the 70s. He was transferred to the emergency room at that time. Chest x-ray was obtained which showed possible multilobar pneumonia with significant desaturations. Also at that time, patient was noted to have extremely elevated hea rt rate and he was found to be in SVT. Patient had electrical cardioversion performed in the emergen cy room successfully. Since that time, patient has been in normal sinus rhythm. The patient was ini tially placed on BiPAP; however, he refused that therapy and would only agree to oxygen by face mask. At that time, he was put on a Ventimask in the emergency room. This morning, patient is very coher ent and oriented though very angry and declining any medical treatments. He is refusing IV fluids as well as more invasive oxygen therapies. PHYSICAL EXAMINATION: VITAL SIGNS: At the time of my exam, patient's vitals were temperature 99.3, pulse 107, respirations 22, oxygen saturation 98% on Ventimask, blood pressure 123/62. GENERAL: The patient is alert and oriented x4. He did not appear to be in any distress. However, h e is very angry and moving around in the bed. He was declining all therapies. LUNGS: Revealed diffuse wheezes as well as rales. Moderate air entry. HEART: Mildly tachycardic, but regular rhythm. ABDOMEN: Soft and nondistended. PSYCHIATRIC: The patient was angry, but very coherent. He knew the reasons for admission as well as the events preceding the admission. He continued to decline all therapies and reported that he want ed to go back to the residential to "." LABORATORY DATA AND IMAGING DATA: 1. Showed elevated white count of 13.8 with 78% neutrophils. Arterial blood gas showed pH 7.32, pCO 2 of 57, pO2 of 46 with oxygen saturations of 78, base excess 1.6. CMP showed mildly increased creat inine of 1.46, but otherwise normal. He did have a CK-MB of 9.1 with troponin of 0.418 increasing to 1.533. BNP was 351. 2. Chest x-ray as above revealed pulmonary vascular congestion and subtle perihilar airspace opaciti es concerning for pulmonary edema. He had a CT angiogram of the chest and thorax, which showed sunni rning for multilobar pneumonia, coronary artery calcifications, aortic arch calcification, right subc arinal hilar lymph node calcifications, small right minor fissure entrapped fluid. ASSESSMENT AND PLAN: 1. This is a 61-year-old gentleman with multiple medical conditions, admitted for findings consisten t with multilobar pneumonia and worsening hypoxia. 2. In regards to patient's acute hypoxic respiratory failure, this is likely secondary to his active pulmonary infection. The patient will be admitted to the IMCU. We will recommend bilevel positive airway pressure therapy as his oxygen saturation is not adequate on Ventimask; however, he is refusin g that at that time. Critical Care has been consulted. Initiate broad spectrum antibiotics treatmen t for this multilobar pneumonia. We will continue multiple conversations with the patient in hopes o f convincing him of using more in the bases of oxygen therapy. Of note, discussion with the patient as well as his power of founder ceo & president does indicate that the patient is a DNR. 3. Likely multilobar pneumonia, antibiotics as above, oxygen therapy as above. The patient will be monitored on in the IMCU at this time. 4. Supraventricular tachycardia. This is now resolved after electrical cardioversion in the emergen cy room. The patient does have elevations in troponins which could be due to the demand ischemia and /or the electrical cardioversion. However, at this time, the patient is declining all interventions including Lovenox injections and telemetry monitoring. We will discuss with him the need for further monitoring and the fact that he may be having acute coronary syndrome and we will work to giving him the appropriate medical therapy. 5. Chronic obstructive pulmonary disease with exacerbation, this is likely due to multilobar pneumon ia. We will attempt to give breathing treatments and also oxygen as needed to maintain sats in appro priate range.
[2017-03-12] MEDS: Gabapentin 300 MG CAP PO SCH ×2 (16:09→20:49)
[2017-03-12] MEDS: Glimepiride 2 MG TAB PO SCH (16:54)
[2017-03-12] MEDS: metFORMIN 500 MG TAB PO SCH (16:55)
[2017-03-12] MEDS ORDERED: Haloperidol Lactate 5 MG/ML VIAL IM PRN (18:03)
--- NOTE | 2017-03-12 19:25 | PDOC.EVN ---
Event Note - Event Note Event Note: Patient expressed desire to leave against medical advice during the day. Patient was under ongoing evaluation in conjunction with pulmonology team regarding their medical decision making capacity. During this process, patient considered going home with hospice and was seen by a hospice organization. It was decided that patient did not have capacity to make this decision based on mental status. In the interm patient had discussion with hospice nurse and mentioned that he had thoughts/plans to attack the NH where he resides. So, patient will need evaluation by [facility] soon and before discharge. Patient continues to refuse all treatments. Since patient is demonstrating some confusion, discussed possibility of using medications to sedate patient for treatment. But at this point, patient is confused but awake and use of those or other sedating medications may worsen clinical status. Will reassess throughout the night to see if benefits outweigh risks of intervention. If necessary will likely choose haldol, as it has least effect on respiratory drive. Or, patient may allow for treatment with time. Confirmed Code status with patients SERENA and sister in law, Liana. She states that he has stated to her on multiple occasions that he would not want a breathing tube or chest compressions and that current DNR status is consistent with his nursing home wishes.
[2017-03-12] MEDS: Atorvastatin Calcium 40 MG TAB PO SCH (20:47)
[2017-03-12] MEDS: cloNIDine 0.1 MG TAB PO SCH (20:48)
[2017-03-12] MEDS: Donepezil HCl 5 MG TAB PO SCH (20:48)
[2017-03-13] MEDS: Sodium Chloride 0.9% 1,000 ML IV SCH ×4 (01:22→20:34)
--- NOTE | 2017-03-13 07:46 | PDOC.FM ---
- Subjective Subjective: Mr. Martell is slightly more cooperative this morning. He is allowing staff to check vitals and give him some medications. Does not mention any active homicidal ideations on my interview this morning. Allowed me to perform exam "since everyone else was messing with him." Still refusing oxygen but satting upper 80's/low 90's on room air, which [facility] - Objective MAR Reviewed: Yes Vital Signs & Weight: Vital Signs (12 hours) Temp Pulse Resp 03/12/17 20:00 99.3 F 107 H 18 Weight Weight 82 kg I&O: 03/12/17 03/13/17 03/14/17 06:59 06:59 06:59 Intake Total 600 Balance 600 Result Diagrams: 03/12/17 06:29 03/12/17 06:29 <Alex Deutsch - Last Filed: 03/13/17 10:04> - Objective Vital Signs & Weight: Vital Signs (12 hours) Temp Pulse Resp BP Pulse Ox 03/13/17 08:00 98.3 F 107 H 18 88 L 03/13/17 07:54 107 H 03/13/17 07:53 178/81 H Weight Weight 82 kg I&O: 03/12/17 03/13/17 03/14/17 06:59 06:59 06:59 Intake Total 600 Balance 600 Result Diagrams: 03/12/17 06:29 03/12/17 06:29 <Sunny Metcalf - Last Filed: 03/13/17 10:12> Phys Exam - Physical Examination Constitutional: NAD scatterered wheezing throughout, improved from prior exam Cardiovascular: no significant murmur, no rub mildly tachycardic Musculoskeletal: no edema Neurological: non-focal, moves all 4 limbs Psychiatric: A&O x 3 <Alex Deutsch - Last Filed: 03/13/17 10:04> Dx/Plan (1) Acute on chronic respiratory failure with hypoxia and hypercapnia Code(s): J96.21 - ACUTE AND CHRONIC RESPIRATORY FAILURE WITH HYPOXIA; J96.22 - ACUTE AND CHRONIC RESPIRATORY FAILURE WITH HYPERCAPNIA Status: Acute Plan: O2 and nebs ordered. Pt refusing. Sats improved this morning to what appears to be baseline. Will continue to monitor throughout the day. (2) Community acquired bacterial pneumonia Code(s): J15.9 - UNSPECIFIED BACTERIAL PNEUMONIA Status: Acute Plan: Continue Levaquin. Will change to PO since patient refusing IV. (3) COPD with exacerbation Code(s): J44.1 - CHRONIC OBSTRUCTIVE PULMONARY DISEASE W (ACUTE) EXACERBATION Status: Resolved Plan: Continue steroids, nebs, O2 as ordered. (4) Sepsis due to pneumonia Code(s): J18.9 - PNEUMONIA, UNSPECIFIED ORGANISM; A41.9 - SEPSIS, UNSPECIFIED ORGANISM Status: Acute Plan: Vital signs are improved today. Pt has refused appropriate treatment with IV abx and fluids. (5) Diabetes type 2, controlled Code(s): E11.9 - TYPE 2 DIABETES MELLITUS WITHOUT COMPLICATIONS Status: Chronic QualifierTitle: Diabetes mellitus complication status: with kidney complications Diabetes mellitus complication detail: with chronic kidney disease Diabetes mellitus ad terminal makeup operator insulin use: with ad terminal makeup operator use Chronic kidney disease stage: stage 3 (moderate) Qualified Code(s): E11.22 - Type 2 diabetes mellitus with diabetic chronic kidney disease; N18.3 - Chronic kidney disease, stage 3 (moderate); N18.3 - Chronic kidney disease, stage 3 (moderate) ; Z79.4 - rat exterminator (current) use of insulin; Z79.4 - FPC (current) use of insulin; Z79.4 - FPC (current) use of insulin; Z79.4 - rat exterminator ( current) use of insulin Plan: Continue home meds. (6) Hypertension Code(s): I10 - ESSENTIAL (PRIMARY) HYPERTENSION Status: Chronic QualifierTitle: Hypertension type: essential hypertension Qualified Code( s): I10 - Essential (primary) hypertension Plan: Stable, continue home medications. (7) Peripheral vascular disease Code(s): I73.9 - PERIPHERAL VASCULAR DISEASE, UNSPECIFIED Status: Chronic - Plan Plan: Dispo: Will monitor throughout the day. If oxygen saturations remain above 88%, will consider patient back at his medical baseline and stable for transfer to in psych facility. <Alex Deutsch - Last Filed: 03/13/17 10:04> Attending Addendum - Attending Addendum I personally evaluated the patient and discussed the management with Dr. Deutsch. I agree with the History, Examination, Assessment and Plan documented above with any addition or exceptions noted below. Patient continues to refuse treatments, though he will accept some medications PO. He has no labs today as he has been refusing them. He is overall appearing improved, and O2 sats in high 80s in most cases on room air. If we can get his sats to the >88% on room air level, will consider medically stable for transfer to inpatient psychiatric facility per [facility] recommendations. <Sunny Metcalf - Last Filed: 03/13/17 10:12>
[2017-03-13] MEDS: Lisinopril 20 MG TAB PO SCH (07:53)
[2017-03-13] MEDS: Nicotine 14 MG PATCH TD SCH (07:53)
[2017-03-13] MEDS: Glimepiride 2 MG TAB PO SCH ×2 (07:53→16:08)
[2017-03-13] MEDS: Gabapentin 300 MG CAP PO SCH ×3 (07:54→20:30)
[2017-03-13] MEDS: predniSONE 20 MG TAB PO SCH (07:54)
[2017-03-13] MEDS: Amlodipine 10 MG TAB PO SCH (07:54)
[2017-03-13] MEDS: metFORMIN 500 MG TAB PO SCH ×2 (07:54→16:08)
[2017-03-13] MEDS: Enoxaparin Sodium 40 MG/0.4 ML SYRINGE SC SCH (07:55)
--- NOTE | 2017-03-13 11:35 | CON ---
DATE OF CONSULTATION: 03/12/2017 HISTORY OF PRESENT ILLNESS: Jasbir is a 61-year-old male apparently was referred for shortness of abran ath. He was found to have SVT and told he was cardioverted in the emergency department, subsequently was admitted. He apparently is a resident of the senior living. He is refusing very much everything anybody tries t o do for him, he refused BiPAP, he would not keep his oxygen on. The only history we provided was to say "leave me alone". PAST MEDICAL HISTORY: 1. Remarkable for diabetes. 2. History of osteomyelitis of his right fifth toe that was resected in November. 3. History of bipolar disorder. 4. History of anxiety. 5. History of herniorrhaphy. 6. History of right hand surgery. 7. He also has a history of schizophrenia and peripheral neuropathy. SOCIAL HISTORY: He is a nonsmoker, nondrinker. He lives in a senior living. He is apparently divorc ed, according to old records, it had been reviewed by me. It is documented in the old records by Dr. Arnett that he is a do not resuscitate status at the senior living. He is a former cigar smoker. He does not smoke now. FAMILY HISTORY: Positive for breast cancer. REVIEW OF SYSTEMS: Not obtainable because he refuses to cooperate with review of systems. PHYSICAL EXAMINATION: VITAL SIGNS: He is afebrile, heart rate is 107, respiratory rate of 20. His oximetry this morning w as 96%. Blood pressure 123/62. HEENT: Sclerae is anicteric. NECK: Supple. He would not keep the oximeter on. LUNGS: Remarkable for coarse wheezes bilaterally. HEART: Regular rhythm. ABDOMEN: Soft. EXTREMITIES: With asymmetry. CT pulmonary angiogram done at 7:15 this morning was reviewed by me. There is no evidence of thrombo embolic disease. He has alveolar infiltrate in his left upper lobe and both lower lobes, and patchy infiltrates on the right. IMPRESSION: 1. Pneumonia, senior living acquired. 2. Encephalopathy. 3. Underlying mental illness by history. 4. Do not resuscitate status. 5. Noncompliance with current care. I have discussed the above with the resident. It is not unreasonable to give him Haldol IM, but I wi ll be closely explained to him that there is some risk for the nurses if they are attempting to give him an IM injection. I do not feel the nurses should be at risk and he must be cooperate with the in jection. Very little but probably will be successful with him, antimicrobial therapy is appropriate. Nebulize r treatments are appropriate, but he would not keep the mask on. Oxygen is appropriate, but he would not keep that on. I do feel strongly that he should not be sedated with benzodiazepines or opiates j ust to facilitate oxygen administration because there is a significant risk of respiratory depression with the use of those drugs in this setting. 70 minutes was spent on this consultation of which greater than 50% was spent on the unit consulting with the nurses and the residency staff for plan of care.
--- NOTE | 2017-03-13 15:22 | PRG ---
DATE OF SERVICE: 03/13/2017 SUBJECITVE: Patient is doing reasonably well. He says he does not want anybody bothering him. OBJECTIVE: VITAL SIGNS: On exam, his temperature is 98.3, pulse 107, respirations 18, O2 sat 88%. HEENT: Unremarkable. NECK: No JVD. CHEST: Clear without wheezing. CARDIAC: S1 and S2 regular. ABDOMEN: Soft. EXTREMITIES: No edema. LABORATORY DATA: No labs were obtained today. ASSESSMENT: Pneumonia, which is prison acquired. PLAN: I think he could be transferred out to the floor. I agree with current antibiotics.
[2017-03-13] MEDS: cloNIDine 0.1 MG TAB PO SCH (20:29)
[2017-03-13] MEDS: Atorvastatin Calcium 40 MG TAB PO SCH (20:30)
[2017-03-13] MEDS: Donepezil HCl 5 MG TAB PO SCH (20:34)
[2017-03-14] MEDS: Sodium Chloride 0.9% 1,000 ML IV SCH ×3 (03:31→15:37)
[2017-03-14 05:33] LABS: #Basophils 0.1 thou/uL (0.0-0.2); #Lymphocytes 3.1 thou/uL (1.20-3.40); #Monocytes 0.6 thou/uL (0.11-0.59); #Neutrophils 3.7 thou/uL (1.40-6.50); %Eosinophils 0.2 % (0.0-10.0); %Lymphocytes 41.5 % (21.0-51.0); %Monocytes 7.4 % (0.0-10.0); Hematocrit 37.3 % (42.0-52.0); Mean Platelet Volume 8.4 fL (7.4-10.4); Red Blood Cell (RBC) Count 3.93 mill/uL (4.70-6.10); White Blood Cell (WBC) Count 7.4 thou/uL (4.8-10.8)
[2017-03-14 05:59] LABS: Anion Gap 12 mmol/L (10-20); BUN (Urea Nitrogen) 32 mg/dL (8.4-25.7); Calc. Creatinine Clearance 53 mL/min (70-130); Calcium 9.2 mg/dL (7.8-10.44); Carbon Dioxide 32 mmol/L (23-31); Chloride 104 mmol/L (98-107); Estimated GFR-MDRD 41
--- NOTE | 2017-03-14 07:59 | PDOC.FM ---
- Subjective Subjective: Mr. Martell is breathing much better this morning. He is easier to communicate with this morning, though still angry and easily irritated. He is sitting up at the side of the bed and appears comfortable without oxygen. No acute events O/N per staff. - Objective MAR Reviewed: Yes Vital Signs & Weight: Vital Signs (12 hours) Temp Pulse Resp BP BP Pulse Ox 03/14/17 04:00 98.4 F 79 22 H 140/62 94 L 03/13/17 20:29 130/50 L 03/13/17 20:00 99.0 F 79 20 92 L Weight Weight 82.01 kg I&O: 03/13/17 03/14/17 03/15/17 06:59 06:59 06:59 Intake Total 600 720 Balance 600 720 Result Diagrams: 03/14/17 05:02 03/14/17 05:02 <Alex Deutsch - Last Filed: 03/14/17 09:13> - Objective Vital Signs & Weight: Vital Signs (12 hours) Temp Pulse Resp BP BP Pulse Ox 03/14/17 09:38 130/50 L 03/14/17 09:37 63 03/14/17 07:00 98.2 F 63 18 140/62 93 L 03/14/17 04:00 98.4 F 79 22 H 140/62 94 L Weight Weight 82.01 kg I&O: 03/13/17 03/14/17 03/15/17 06:59 06:59 06:59 Intake Total 600 720 Balance 600 720 Result Diagrams: 03/14/17 05:02 03/14/17 05:02 <Sunny Metcalf - Last Filed: 03/14/17 10:43> Phys Exam - Physical Examination Constitutional: NAD mild scattered wheezing Cardiovascular: RRR, no significant murmur Psychiatric: A&O x 3 Deviation from normal: angry affect <Alex Deutsch - Last Filed: 03/14/17 09:13> Dx/Plan (1) Acute on chronic respiratory failure with hypoxia and hypercapnia Code(s): J96.21 - ACUTE AND CHRONIC RESPIRATORY FAILURE WITH HYPOXIA; J96.22 - ACUTE AND CHRONIC RESPIRATORY FAILURE WITH HYPERCAPNIA Status: Acute Plan: O2 and nebs ordered. Pt refusing most treatments. O2 sats have continued to improve and are now stable in the low 90's. (2) Community acquired bacterial pneumonia Code(s): J15.9 - UNSPECIFIED BACTERIAL PNEUMONIA Status: Acute Plan: Continue PO levaquin x 7 days. (3) COPD with exacerbation Code(s): J44.1 - CHRONIC OBSTRUCTIVE PULMONARY DISEASE W (ACUTE) EXACERBATION Status: Resolved Plan: Continue steroids, nebs, O2 as ordered. (4) Sepsis due to pneumonia Code(s): J18.9 - PNEUMONIA, UNSPECIFIED ORGANISM; A41.9 - SEPSIS, UNSPECIFIED ORGANISM Status: Resolved Plan: Vital signs continue to be improved. Pt has refused standard treatment with IV abx and fluids. (5) Diabetes type 2, controlled Code(s): E11.9 - TYPE 2 DIABETES MELLITUS WITHOUT COMPLICATIONS Status: Chronic QualifierTitle: Diabetes mellitus complication status: with kidney complications Diabetes mellitus complication detail: with chronic kidney disease Diabetes mellitus manager intermediate insulin use: with manager intermediate use Chronic kidney disease stage: stage 3 (moderate) Qualified Code(s): E11.22 - Type 2 diabetes mellitus with diabetic chronic kidney disease; N18.3 - Chronic kidney disease, stage 3 (moderate); N18.3 - Chronic kidney disease, stage 3 (moderate) ; Z79.4 - [facility] (current) use of insulin; Z79.4 - termite control service representative (current) use of insulin; Z79.4 - termite control service representative (current) use of insulin; Z79.4 - [facility] ( current) use of insulin Plan: Continue home meds. (6) Hypertension Code(s): I10 - ESSENTIAL (PRIMARY) HYPERTENSION Status: Chronic QualifierTitle: Hypertension type: essential hypertension Qualified Code( s): I10 - Essential (primary) hypertension Plan: Stable, continue home medications. (7) Peripheral vascular disease Code(s): I73.9 - PERIPHERAL VASCULAR DISEASE, UNSPECIFIED Status: Chronic <Alex Deutsch - Last Filed: 03/14/17 09:13> Attending Addendum - Attending Addendum I personally evaluated the patient and discussed the management with Dr. Deutsch. I agree with the History, Examination, Assessment and Plan documented above with any addition or exceptions noted below. Patient doing well. He is less combative. Continues to be alert and oriented x 4. His O2 sats have improved and he is at baseline O2 status on room air. Labs ok. Continue antibiotics, breathing treatments, and steroids. Patient is medically stable for discharge, will consult [facility] for rescreening. <Sunny Metcalf - Last Filed: 03/14/17 10:43>
[2017-03-14] MEDS: metFORMIN 500 MG TAB PO SCH ×2 (09:35→16:12)
[2017-03-14] MEDS: Glimepiride 2 MG TAB PO SCH ×2 (09:36→16:12)
[2017-03-14] MEDS: Amlodipine 10 MG TAB PO SCH ×2 (09:37→12:27)
[2017-03-14] MEDS: Gabapentin 300 MG CAP PO SCH ×2 (09:38→15:39)
[2017-03-14] MEDS: Enoxaparin Sodium 40 MG/0.4 ML SYRINGE SC SCH (09:38)
[2017-03-14] MEDS: Lisinopril 20 MG TAB PO SCH (09:38)
[2017-03-14] MEDS: predniSONE 20 MG TAB PO SCH (09:39)
[2017-03-14] MEDS: Nicotine 14 MG PATCH TD SCH (09:40)
--- NOTE | 2017-03-14 10:49 | PRG ---
DATE OF SERVICE: 03/14/2017 Jori Martell is a 61-year-old gentleman who denies any difficulty breathing. He is schizophrenic. No fever or chills. PHYSICAL EXAMINATION: VITAL SIGNS: Blood pressure 130/50, pulse 60, temperature 98. Sats 98%. CHEST: No wheezing. CARDIAC: Normal S1, S2. LABORATORY DATA: White count 10,000, H&H 9 and 37, platelet count normal, creatinine 1.6. IMPRESSION: 1. Possibly pneumonia. 2. Chronic obstructive pulmonary disease. 3. Schizophrenia. PLAN: I suggest we switch him over to oral antibiotics. He can be transferred to a psych unit. I will follow while in the IMCU.
[2017-03-14 12:23] VITALS: TEMP 98
[2017-03-14 13:13] LABS: Acetaminophen Less than 6.0 mcg/mL (10.0-30.0); Salicylate Less than 8.0 mg/dL (15.0-30.0)
[2017-03-14 15:36] VITALS: BP 130/50
== END 2017-03-14 16:47 | DRG 871 ==
LOC: ERS 05:54 → IMCU/EMU 07:38
PROVIDERS: ADMIT Student in an Organized Health Care Education/Training Program; ATTEND Student in an Organized Health Care Education/Training Program
DX: A41.9 Sepsis, unspecified organism (principal); J96.01 Acute respiratory failure with hypoxia; G93.41 Metabolic encephalopathy; J96.02 Acute respiratory failure with hypercapnia; J15.9 Unspecified bacterial pneumonia; E11.22 Type 2 diabetes mellitus with diabetic chronic kidney disease; N18.3 Chronic kidney disease, stage 3 (moderate); I47.1 Supraventricular tachycardia; E11.40 Type 2 diabetes mellitus with diabetic neuropathy, unspecified; J44.1 Chronic obstructive pulmonary disease with (acute) exacerbation; J44.0 Chronic obstructive pulmonary disease with (acute) lower respiratory infection; F03.90 Unspecified dementia, unspecified severity, without behavioral disturbance, psychotic disturbance, mood disturbance, and anxiety; D64.9 Anemia, unspecified; F20.9 Schizophrenia, unspecified; I12.9 Hypertensive chronic kidney disease with stage 1 through stage 4 chronic kidney disease, or unspecified chronic kidney disease; F31.9 Bipolar disorder, unspecified; E78.5 Hyperlipidemia, unspecified; I73.9 Peripheral vascular disease, unspecified; F17.210 Nicotine dependence, cigarettes, uncomplicated; R74.8 Abnormal levels of other serum enzymes; Z66 Do not resuscitate; Z88.0 Allergy status to penicillin; Z88.8 Allergy status to other drugs, medicaments and biological substances; Z91.018 Allergy to other foods; Z89.421 Acquired absence of other right toe(s); Z79.4 Long term (current) use of insulin; Z91.19 Patient's noncompliance with other medical treatment and regimen; Z80.3 Family history of malignant neoplasm of breast
CPT/HCPCS: 36415; 71010; 71275; 80048; 80053; 80307; 82550; 82553; 82805; 83605; 83690; 83880; 84484; 85025; 85379; 85610; 85730; 87040; 93005; 94640; 94660; G8987-GO-CI; G8988-GO-CI; G8989-GO-CI; J1956; J2060; J7050; J7620

== ENCOUNTER 2017-11-13 21:39 | Emergency (ER) | payer MEDICARE, MEDICAID ==
[2017-11-13 22:57] LABS: #Basophils 0.1 thou/uL (0.0-0.2); #Eosinphils 0.4 thou/uL (0.0-0.7); #Lymphocytes 2.6 thou/uL (1.20-3.40); #Monocytes 0.7 thou/uL (0.11-0.59); #Neutrophils 6.1 thou/uL (1.40-6.50); %Basophils 0.9 % (0.0-1.0); %Eosinophils 3.9 % (0.0-10.0); %Lymphocytes 26.1 % (21.0-51.0); %Monocytes 7.4 % (0.0-10.0); %Neutrophils 61.7 % (42.0-75.0); Hemoglobin 10.2 g/dL (14.0-18.0); Mean Corpuscular HGB CONC 33.4 g/dL (32.0-36.0); Mean Corpuscular Hemoglobin 28.2 pg (27.0-31.0); Mean Corpuscular Volume 84.5 fL (78.0-98.0); Platelet Count 260 thou/uL (130-400); RBC Distribution Width 16.7 % (11.5-14.5); Red Blood Cell (RBC) Count 3.63 mill/uL (4.70-6.10); White Blood Cell (WBC) Count 9.9 thou/uL (4.8-10.8)
--- NOTE | 2017-11-13 23:08 | CT ---
CT HEAD NONCONTRAST: HISTORY: Altered mental status. COMPARISON: 06/28/2016 FINDINGS: There is no evidence of acute intracranial hemorrhage or infarct. Diffuse cortical atrophy and chron ic ischemic small vessel disease are again demonstrated. There is no mass effect or shift of midline structures. The visualized paranasal sinuses remain well aerated. IMPRESSION: Chronic type findings are stable. No acute intracranial abnormalities are demonstrated on noncontras t CT head. POS: [facility]
[2017-11-13 23:22] LABS: ALT (SGPT) 7 U/L (8-55); AST (SGOT) 11 U/L (5-34); Albumin 3.6 g/dL (3.4-4.8); Alkaline Phosphatase 106 U/L (40-150); Anion Gap 15 mmol/L (10-20); BUN (Urea Nitrogen) 27 mg/dL (8.4-25.7); Bilirubin, Total 0.2 mg/dL (0.2-1.2); Calc. Creatinine Clearance 0 mL/min (70-130); Calcium 8.9 mg/dL (7.8-10.44); Carbon Dioxide 24 mmol/L (23-31); Chloride 100 mmol/L (98-107); Estimated GFR-MDRD 37; Glucose 122 mg/dL (80-115); Potassium 4.9 mmol/L (3.5-5.1); Protein, Total 6.6 g/dL (5.8-8.1); Sodium 134 mmol/L (136-145)
[2017-11-13 23:24] LABS: CKMB 1.8 ng/mL (0-6.6); Troponin I Less than 0.010 ng/mL (< 0.028)
--- NOTE | 2017-11-15 13:46 | EKG ---
Test Reason : Blood Pressure : / mmHG Vent. Rate : 074 BPM Atrial Rate : 074 BPM P-R Int : 158 ms QRS Dur : 122 ms QT Int : 392 ms P-R-T Axes : -03 -56 -11 degrees QTc Int : 435 ms Normal sinus rhythm Left anterior fascicular block Left ventricular hypertrophy with QRS widening Cannot rule out Septal infarct , age undetermined Abnormal ECG Confirmed by FRANCESCA VARMA, ERICA ([id number]), editor in chief newspaper [employer] ([id number]) on 11/15/2017 1:45:44 PM Referred By: Confirmed By:ERICA MA MD
--- NOTE | 2017-11-15 13:46 | EKG ---
Test Reason : Blood Pressure : / mmHG Vent. Rate : 074 BPM Atrial Rate : 074 BPM P-R Int : 188 ms QRS Dur : 124 ms QT Int : 404 ms P-R-T Axes : 064 -55 -10 degrees QTc Int : 448 ms Normal sinus rhythm Left bundle branch block Abnormal ECG Confirmed by FRANCESCA VARMA, ERICA ([id number]), publications editor [employer] ([id number]) on 11/15/2017 1:45:46 PM Referred By: Confirmed By:ERICA MA MD
--- NOTE | 2017-11-15 13:46 | EKG ---
Test Reason : Blood Pressure : / mmHG Vent. Rate : 130 BPM Atrial Rate : 130 BPM P-R Int : 156 ms QRS Dur : 122 ms QT Int : 308 ms P-R-T Axes : 084 -59 167 degrees QTc Int : 453 ms Sinus tachycardia Left anterior fascicular block Septal infarct , age undetermined Abnormal ECG Confirmed by FRANCESCA VARMA, ERICA ([id number]), desk editor [employer] ([id number]) on 11/15/2017 1:45:45 PM Referred By: Confirmed By:ERICA MA MD
== END 2017-11-14 02:22 | disposition left against medical advice (07) ==
LOC: ERS 21:39
DX: R00.0 Tachycardia, unspecified (principal); J44.9 Chronic obstructive pulmonary disease, unspecified; I10 Essential (primary) hypertension; E11.9 Type 2 diabetes mellitus without complications; F31.9 Bipolar disorder, unspecified; F20.9 Schizophrenia, unspecified; F17.210 Nicotine dependence, cigarettes, uncomplicated; Z79.84 Long term (current) use of oral hypoglycemic drugs; Z79.899 Other long term (current) drug therapy
CPT/HCPCS: 36415; 70450; 80053; 82553; 84484; 85025; 93005; 94760; 96360

== ENCOUNTER 2018-10-24 13:27 | Observation (INO) | payer MEDICARE, MEDICAID ==
[2018-10-24] MEDS ORDERED: Acetaminophen 650 MG Suppository PR PRN (19:04)
[2018-10-24] MEDS ORDERED: HYDROcodone/Acetaminophen 5/325 mg Tablet PO PRN ×2 (19:04)
[2018-10-24] MEDS ORDERED: Sodium Chloride 0.9% 1,000 ML IV SCH (19:04)
[2018-10-24] MEDS ORDERED: Fleet Enema 133 ML BOT PR PRN (19:04)
[2018-10-24] MEDS ORDERED: Calcium Carbonate 500 MG ChewTAB PO PRN (19:04)
[2018-10-24] MEDS ORDERED: Acetaminophen 325 MG TAB PO PRN (19:04)
[2018-10-24] MEDS ORDERED: Senokot 8.6 MG TAB PO PRN (19:04)
[2018-10-24] MEDS ORDERED: Pepto Bismol Chew TAB PO PRN (19:04)
[2018-10-24] MEDS ORDERED: Ondansetron PF 4 MG/2 ML Vial SLOW IVP PRN (19:04)
[2018-10-24 19:13] LABS: #Basophils 0.1 thou/uL (0.0-0.2); #Eosinphils 0.4 thou/uL (0.0-0.7); #Lymphocytes 2.7 thou/uL (1.20-3.40); #Monocytes 0.7 thou/uL (0.11-0.59); #Neutrophils 4.4 thou/uL (1.40-6.50); %Basophils 1.1 % (0.0-1.0); %Eosinophils 4.6 % (0.0-10.0); %Lymphocytes 32.9 % (21.0-51.0); %Monocytes 8.4 % (0.0-10.0); Mean Corpuscular HGB CONC 32.4 g/dL (32.0-36.0); Mean Corpuscular Hemoglobin 31.8 pg (27.0-31.0); Mean Corpuscular Volume 98.1 fL (78.0-98.0); Mean Platelet Volume 9.5 fL (7.4-10.4); Platelet Count 160 thou/uL (130-400); RBC Distribution Width 13.5 % (11.5-14.5); Red Blood Cell (RBC) Count 4.07 mill/uL (4.70-6.10); White Blood Cell (WBC) Count 8.3 thou/uL (4.8-10.8)
[2018-10-24 19:33] LABS: Anion Gap 14 mmol/L (10-20); BUN (Urea Nitrogen) 35 mg/dL (8.4-25.7); Calc. Creatinine Clearance 0 mL/min (70-130); Calcium 9.6 mg/dL (7.8-10.44); Carbon Dioxide 28 mmol/L (23-31); Chloride 102 mmol/L (98-107); Estimated GFR-MDRD 26; Glucose 352 mg/dL (80-115); Potassium 4.8 mmol/L (3.5-5.1); Sodium 139 mmol/L (136-145)
[2018-10-24] MEDS ORDERED: Milk Of Magnesia 30 ML UDCUP PO PRN (20:43)
[2018-10-24] MEDS ORDERED: Loperamide HCl 2 MG CAP PO PRN (20:44)
[2018-10-24] MEDS ORDERED: Dextrose 50% Abboject 50 ML SYRINGE IVP PRN (20:45)
[2018-10-24] MEDS ORDERED: HumaLOG 300 UNITS/3 ML VIAL SC PRN (20:45)
[2018-10-24] MEDS ORDERED: Dextrose 5% in Water 1,000 ML IV PRN (20:45)
[2018-10-24] MEDS ORDERED: Rosuvastatin 20 MG TAB PO SCH (21:00)
[2018-10-24 21:18] VITALS: BMI 27.5
[2018-10-24] MEDS: Sodium Chloride 0.9% 1,000 ML IV SCH (22:14)
[2018-10-25] MEDS ORDERED: Acetaminophen 325 MG TAB PO PRN (00:19)
[2018-10-25] MEDS ORDERED: cloNIDine 0.1 MG TAB PO PRN (00:21)
[2018-10-25] MEDS ORDERED: Ibuprofen 200 MG TAB PO PRN (00:22)
[2018-10-25] MEDS: Sodium Chloride 0.9% 1,000 ML IV SCH ×2 (03:36→06:05)
[2018-10-25] MEDS ORDERED: Lidocaine 1% (PF) 30 ML VIAL ONE (06:36)
[2018-10-25] MEDS ORDERED: Fentanyl 100 MCG/2 ML VIAL ONE (07:18)
[2018-10-25] MEDS ORDERED: Midazolam HCl 2 mg/2 ml Vial ONE (07:18)
[2018-10-25] MEDS ORDERED: Acetaminophen/Codeine 30-300mg Tablet PO PRN ×2 (07:56)
[2018-10-25] MEDS ORDERED: Sodium Chloride 0.9% 200 ML IV PRN (07:56)
[2018-10-25] MEDS ORDERED: Nitroglycerin 0.4 MG TAB (25 Tab Bottle) SL PRN (07:56)
[2018-10-25] MEDS ORDERED: metFORMIN 500 MG TAB PO SCH (08:00)
[2018-10-25] MEDS ORDERED: Glimepiride 2 MG TAB PO SCH ×2 (08:00→17:00)
[2018-10-25] MEDS ORDERED: Sodium Chloride 0.9% 1,000 ML IV SCH (08:00)
[2018-10-25] MEDS ORDERED: Ferrous Sulfate 325 MG TAB PO SCH (08:00)
--- NOTE | 2018-10-25 08:53 | OP ---
DATE OF PROCEDURE: 10/25/2018 PREPROCEDURE DIAGNOSIS: Nonhealing ulcer. POSTPROCEDURE DIAGNOSIS: Severe peripheral vascular disease. RECOMMENDATION: Right endarterectomy. PROCEDURES PERFORMED: 1. Aortogram. 2. Bilateral aortofemoral runoff. COMPLICATIONS: None. TOTAL CONTRAST: 27 mL. HISTORY OF PRESENT ILLNESS: Mr. Martell was admitted prior to the procedure for hydration. His baseline creatinine was 2.5. He received 1100 mL of saline prior to the procedure. He did appear to be in atrial flutter, which is a known diagnosis in the past. He has refused all treatment. This occurred prior to the procedure. He received 1 dose of Cardizem and converted to sinus rhythm. DESCRIPTION OF PROCEDURE: The patient was therefore draped and prepped in sterile fashion. the left femoral artery under ultrasound guidance. Micropuncture sheath was employed. Images were performed with half and half contrast and saline under DSA. FINDINGS: The aorta distally has no significant stenosis. Right lower extremity - the common iliac and external iliac had no significant disease. There is 100% occlusion of the common femoral artery to the proximal portion of the SFA with significant collaterals. There is no significant stenosis noted to the SFA or to the popliteal artery. There appears to be 80% stenosis of the right posterior tibial artery. Left lower extremity - the common iliac artery is heavily calcified with no significant stenosis. The external iliac artery has no significant disease. The common femoral artery at the access point did have significant calcification. Stenosis was difficult to quantify due to catheter placement. There was no significant stenosis of the SFA. The popliteal artery did have 60% stenosis distally. Job ID: [id number]
[2018-10-25] MEDS ORDERED: Clopidogrel Bisulfate 75 MG TAB PO SCH (09:00)
[2018-10-25] MEDS ORDERED: Amlodipine 10 MG TAB PO SCH (09:00)
[2018-10-25] MEDS ORDERED: Aspirin Chewable 81 MG TAB PO SCH (09:00)
[2018-10-25] MEDS ORDERED: Gabapentin 400 MG CAP PO SCH (09:00)
[2018-10-25 13:57] LABS: Anion Gap 9 mmol/L (10-20); BUN (Urea Nitrogen) 31 mg/dL (8.4-25.7); Calc. Creatinine Clearance 62 mL/min (70-130); Calcium 9.6 mg/dL (7.8-10.44); Carbon Dioxide 29 mmol/L (23-31); Chloride 110 mmol/L (98-107); Estimated GFR-MDRD 40; Glucose 118 mg/dL (80-115); Potassium 4.9 mmol/L (3.5-5.1); Sodium 143 mmol/L (136-145)
[2018-10-25 14:12] VITALS: BP 177/74; TEMP 98.3
[2018-10-25] MEDS ORDERED: Iopamidol 370 76% 100 ML VIAL ONE (14:15)
--- NOTE | 2018-10-25 16:51 | DIS ---
DATE OF ADMISSION: 10/24/2018 DATE OF DISCHARGE: 10/25/2018 DISCHARGE DIAGNOSES: Severe peripheral vascular disease and nonhealing ulcer. PROCEDURE: 1. Aortofemoral runoff. 2. Aortogram. HOSPITAL COURSE: Mr. Martell was admitted one day prior to the procedure for IV hydration. His creatinine was 2.5. On the day of discharge, his creatinine was 1.8. The procedure went well on 10/25/2018. A total of 27 mL of contrast was used. This was not felt to be enough to affect his kidney function. He was well hydrated overnight. He was found to have complete occlusion of the right common femoral artery, likely causing issues with nonhealing ulcer. The patient continued with hydration for the procedure. I discussed case with [facility]. They are not able to do his surgery tomorrow if needed. We will need to wait until next week. At this point, given the decrease in his creatinine and good hydration, would discharge home. Mr. Martell is on metformin and would discontinue given his creatinine. This is contraindicated. His primary care provider will need to treat his diabetes with other medications outside of metformin. DISCHARGE MEDICATIONS: 1. Aricept 5 mg q.p.m. 2. Simvastatin 20 mg daily. 3. Milk of magnesia 30 mg p.r.n. 4. Lasix 40 daily. 5. Omeprazole 20 daily. 6. Norvasc 10 mg daily. 7. Lisinopril 20 daily. 8. Motrin 40 t.i.d. p.r.n. 9. Amaryl 2 mg q.p.m., 4 mg q.a.m. 10. Neurontin 400 mg t.i.d. 11. Iron. 12. Plavix 75 daily. 13. Catapres 0.1 b.i.d. 14. Aspirin 81 daily. CONDITION ON DISCHARGE: Stable. DISPOSITION: The patient will be discharged to assisted. Job ID: [id number]
[2018-10-25] MEDS ORDERED: Donepezil HCl 5 MG TAB PO SCH (21:00)
== END 2018-10-25 17:43 ==
LOC: EDSTATUS 14:03 → ONC 18:03 → T4-B 20:51 → 2SW 10-25 07:51
PROVIDERS: ADMIT Internal Medicine Cardiovascular Disease; ATTEND Internal Medicine Cardiovascular Disease
PROC: B41D1ZZ Fluoroscopy of Aorta and Bilateral Lower Extremity Arteries using Low Osmolar Contrast (ICD-10-PCS; principal; 2018-10-24)
DX: E11.51 Type 2 diabetes mellitus with diabetic peripheral angiopathy without gangrene (principal); E11.622 Type 2 diabetes mellitus with other skin ulcer; L98.499 Non-pressure chronic ulcer of skin of other sites with unspecified severity; I70.203 Unspecified atherosclerosis of native arteries of extremities, bilateral legs; I70.92 Chronic total occlusion of artery of the extremities; I12.9 Hypertensive chronic kidney disease with stage 1 through stage 4 chronic kidney disease, or unspecified chronic kidney disease; E11.22 Type 2 diabetes mellitus with diabetic chronic kidney disease; N18.3 Chronic kidney disease, stage 3 (moderate); F03.90 Unspecified dementia, unspecified severity, without behavioral disturbance, psychotic disturbance, mood disturbance, and anxiety; F31.9 Bipolar disorder, unspecified; E11.42 Type 2 diabetes mellitus with diabetic polyneuropathy; E78.00 Pure hypercholesterolemia, unspecified; J44.9 Chronic obstructive pulmonary disease, unspecified; I48.3 Typical atrial flutter; E78.5 Hyperlipidemia, unspecified; F17.210 Nicotine dependence, cigarettes, uncomplicated; Z88.0 Allergy status to penicillin; Z91.018 Allergy to other foods; Z88.8 Allergy status to other drugs, medicaments and biological substances; Z79.84 Long term (current) use of oral hypoglycemic drugs; Z79.02 Long term (current) use of antithrombotics/antiplatelets; Z79.82 Long term (current) use of aspirin; Z79.899 Other long term (current) drug therapy
CPT/HCPCS: 36246; 75716; 76942; 80048 ×2; 82962 ×2; 85025; 96360; 96361 ×2; C1725; C1769 ×2; C1887; G0378 ×2; 36415; 36416; J1644; J2001; J2250; J3010

== ENCOUNTER 2018-10-29 09:22 | Outpatient (CLI) | payer MEDICARE, MEDICAID ==
--- NOTE | 2018-10-29 15:48 | CT ---
CT ANGIOGRAM ABDOMEN AND PELVIS WITH IV CONTRAST AND 3D RECONSTRUCTIONS CT ANGIOGRAM BILATERAL LOWER EXTREMITIES WITH RUNOFF TO THE FEET WITH IV CONTRAST AND 3D RECONSTRUCTI ONS: HISTORY: Atherosclerotic vascular disease involving the elem arteries. FINDINGS: CTA ABDOMEN AND PELVIS: There is suboptimal opacification of the arterial vessels due to decrease dose of intravenous contras t secondary to renal insufficiency. There is evidence of an infrarenal abdominal aortic aneurysm which measures 3.7 cm in greatest AP dim ensions. There are several very small sacular-type aneurysms also seen involving the abdominal aorta which were seen on prior noncontrast study on 03/25/2016 and were also seen on the prior study obtaine d at [facility] on 12/01/2014. There is atherosclerotic plaque and calcificatio n seen involving the abdominal aorta as well as the iliac arteries. 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 The celiac artery appears patent. There are dense vascular ca lcifications at the origin of the SMA also seen on the prior study in 2014 and not significantly reyna ged. There is at least moderate stenosis at the origin of the SMA with dense vascular calcifications at the origin. Vascular calcifications and atherosclerotic plaque is seen involving the origins of each renal, and t he degree of narrowing at each origin is difficult to assess and is probably at least moderate in sev erity. There is limited assessment of the iliac arteries due to lack of adequate enhancement. However, ther e is a suggestion of occlusion of the right external iliac artery with prominent atherosclerotic calc ifications and plaque seen in each common iliac artery. Dense vascular calcifications are seen at th e origin of each internal iliac artery limiting assessment. Calcified granuloma is seen at the left lung base with calcified granulomata identified in the spleen . A tiny gallbladder calculus versus tiny polyp is seen. The liver, pancreas, and bilateral adrenal glands demonstrate a normal CT appearance. Subcentimeter too small to characterize hypodense lesion is seen in the superior pole right kidney as well as in t he mid portion inferior pole left kidney. There is no hydronephrosis. There is a urinary bladder diverticulum again seen at the left lateral posterolateral aspect of the u rinary bladder. There is colonic diverticulosis with a small to moderate amount of retained fecal material seen throu ghout the colon. An appendicolith is seen in the appendix which measures approximately 7 mm. However, the appendix di stal to this region is filled with gas and normal in caliber. No other interval change from the prior exams. BILATERAL LOWER EXTREMITY RUNOFF: There is suboptimal evaluation of the lower extremity arterial vessels due to suboptimal contrast opa cification. Diffuse atherosclerotic vascular calcifications are seen throughout the lower extremity arterial vessels. There are dense vascular calcifications involving the right lower extremity common femoral artery resulting in moderate narrowing. Multifocal irregularity of the right lower extremit y superficial femoral artery is seen with mild to moderate degrees of narrowing, but portions of the superficial femoral artery are not well evaluated due to the dense calcifications. Proximal poplitea l artery is not well assessed. Although there is a faint opacification of the tibioperoneal vessels, there does appear to be 3-vessel runoff to the right lower extremity. There is prominent subcutaneo us edema of the right lower extremity, greatest involving the distal right lower extremity. There ar e small varicosities involving the medial aspect of the right calf. There is inflammatory stranding seen within the left inguinal region which is not seen on the prior e xams. There is an increased density area within the left inguinal region measuring 1.9 cm, which may represent a small hematoma. There are dense vascular calcifications in the left common femoral artery, but the left common femora l artery does appear overall patent. The origin of the superficial femoral artery is not well seen. There is suboptimal opacification of the superficial femoral artery with multilevel vascular calcifi cation seen resulting in at least mild to moderate narrowing. Popliteal artery is not well assessed. There is suboptimal opacification of the tibioperoneal vessels on the left. Varicosities are seen in the subcutaneous soft tissues of the left lower extremity and there is subcutaneous edema greater involving the distal left lower extremity. IMPRESSION: 1. Infrarenal abdominal aortic aneurysm measuring 3.7 cm in greatest AP dimensions with prominent at herosclerotic plaque and calcifications in the abdominal aorta in addition to multiple small outpouch ing of the aorta suggesting several small sacular-type aneurysms. These findings are stable compared to a study in 2015, although the AP dimension of the more focal fusiform infrarenal abdominal aortic aneurysm previously measured 3.5 cm on that exam. 2. Suboptimal opacification of the arterial vessels which limits adequate evaluation for degrees of narrowing involving the iliac or bilateral lower extremity arterial vessels. Dense vascular calcific ations are seen within the lower extremity arterial vessels. There is question of occlusion of the r ight external iliac artery with prominent atherosclerotic calcifications and plaque seen in each comm on iliac artery. 3. Stranding within the left inguinal region with area of ill-defined increased density measuring 1. 9 cm. These findings could be related to hematoma in this region. However, infectious or inflammato ry process is a possibility. Correlation for recent injury in this region is recommended. 4. Prominent urinary bladder diverticulum. 5. Constipation. 6. The remainder of the findings are as described above. POS: [facility]
[2018-10-29] MEDS ORDERED: Iopamidol 370 76% 100 ML VIAL ONE (16:26)
== END 2018-10-29 09:23 | disposition home or self-care (01) ==
LOC: CT 09:22
PROVIDERS: ATTEND Thoracic Surgery (Cardiothoracic Vascular Surgery)
DX: I70.261 Atherosclerosis of native arteries of extremities with gangrene, right leg (principal); I71.4 Abdominal aortic aneurysm, without rupture; K59.00 Constipation, unspecified
CPT/HCPCS: 75635; Q9967